=== PATIENT | male | born 1985 | race Caucasian/White ===

== ENCOUNTER 2016-07-03 08:20 | Inpatient (IN) | payer OTHER ==
[~2016-07-03] VITALS: Ht 185.4 cm; Wt 99.0 kg
[2016-07-03] VITALS (20 sets, daily range): BP systolic 117–147; BP diastolic 62–78; PULSE 64–92; RESP 16–18; TEMP 98.3–99.2; O2SAT 98–100
[2016-07-03] MEDS ORDERED: CIPR-9 PO (08:29)
[2016-07-03] MEDS ORDERED: SODIUM CHLOR 0.9% 1000 ML INJ 1,000 ML IV SCH (08:33)
--- NOTE | 2016-07-03 08:40 | PD ---
HPI Chief Complaint: Respiratory Symptoms Time Seen by Provider: 08:33 Travel History International Travel<30 days: No Contact w/Intl Traveler<30days: No Traveled to known affect area: No History of Present Illness HPI 30-year-old male with history of recent diagnosis of epidermidis, had an injection of gentamicin and Toradol yesterday afternoon at a urologist office, was given 1 dose of by mouth Cipro yesterday, last night at around 10 PM started getting chest discomfort, shortness of breath, nausea, vomiting several times overnight. He is currently complaining of a 7/10 chest discomfort. He denies any abdominal pains, fevers, difficulty swallowing, coughing, or other symptoms. He has not had previous allergic reactions. It is the first time he is taking Cipro. However, the symptoms did not start until after he took the second dose last night. He denies any rashes or facial swelling. Modifying Factors: None Associated Signs & Symptoms: Nausea, chest discomfort, shortness of breath, vomiting Risk Factors: Recent new antibiotic use PFSH Past Medical History Medical History: Denies Significant Hx Hx Anticoagulant Therapy: No Diabetes: No Diminished Hearing: No Influenza Vaccination: No ?: Not Past Surgical History Oral Surgery: Yes (jackie) Social History Alcohol Use: Yes Tobacco Use: Yes Allergies-Medications (Allergen,Severity, Reaction): Coded Allergies: No Known Allergies (Unverified , 07/03/16) Reported Meds & Prescriptions Reported Meds & Active Scripts Active Reported Cipro (Ciprofloxacin HCl) 500 Mg Tab 500 Mg PO ONCE Review of Systems Except as stated in HPI: all other systems reviewed are Neg Physical Exam Narrative GENERAL: Well-developed young white male patient who appears mildly anxious. Moderate distress. Awake and oriented 3. SKIN: Focused skin assessment warm/dry. HEAD: Atraumatic. Normocephalic. EYES: Pupils equal and round. No scleral icterus. No injection or drainage. ENT: No nasal bleeding or discharge. Mucous membranes pink and moist. NECK: Trachea midline. No JVD. CARDIOVASCULAR: Regular rate and rhythm. No murmur appreciated. RESPIRATORY: No accessory muscle use. Clear to auscultation. Breath sounds equal bilaterally. GASTROINTESTINAL: Abdomen soft, non-tender, nondistended. Hepatic and splenic margins not palpable. Benign. MUSCULOSKELETAL: No obvious deformities. No clubbing. No cyanosis. No edema. NEUROLOGICAL: Awake and alert. No obvious cranial nerve deficits. Motor grossly within normal limits. Normal speech. PSYCHIATRIC: Appropriate mood and affect; insight and judgment normal. Data Data Last Documented VS Vital Signs Date Time Temp Pulse Resp B/P Pulse Ox O2 Delivery O2 Flow Rate FiO2 07/03/16 09:24 67 18 132/64 Room Air 100 07/03/16 08:46 100 07/03/16 08:23 98.3 Orders Complete Blood Count With Diff (07/03/16 08:33) Comprehensive Metabolic Panel (07/03/16 08:33) Lipase (07/03/16 08:33) Iv Access Insert/Monitor (07/03/16 08:33) Ecg Monitoring (07/03/16 08:33) Oximetry (07/03/16 08:33) Ondansetron Inj (Zofran Inj) (07/03/16 08:45) Sodium Chlor 0.9% 1000 Ml Inj (Ns 1000 M (07/03/16 08:33) Sodium Chloride 0.9% Flush (Ns Flush) (07/03/16 08:45) Diphenhydramine Inj (Benadryl Inj) (07/03/16 08:45) Famotidine Inj (Pepcid Inj) (07/03/16 08:45) Ckmb (Isoenzyme) Profile (07/03/16 09:14) Troponin I (07/03/16 09:14) Lorazepam Inj (Ativan Inj) (07/03/16 09:15) Chest, Single Ap (07/03/16 09:16) CKMB (07/03/16 08:40) CKMB% (07/03/16 08:40) Aspirin (Aspirin) (07/03/16 10:30) Heparin Infusion KIAH.Q1H (07/03/16 10:30) Heparin Inj (Heparin Inj) (07/03/16 10:30) Heparin Inj (Heparin Inj) (07/03/16 16:30) Heparin Inj (Heparin Inj) (07/03/16 16:30) Heparin-D5w Inj (Heparin-D5w Inj) (07/03/16 10:30) Act Partial Throm Time (Ptt) (07/03/16 10:30) Prothrombin Time / Inr (Pt) (07/03/16 10:30) Cbc No Diff, Includes Plts (07/03/16 10:30) Cbc No Diff, Includes Plts (07/06/16 06:00) Act Partial Throm Time (Ptt) (07/03/16 17:30) Occult Blood (Hemoccult) Stool (07/03/16 10:30) Nitroglycerin-Dextrose Inj (Nitroglyceri (07/03/16 10:30) Consult Cardiology (07/03/16 ) Admit Order (Ed Use Only) (07/03/16 10:45) Labs Laboratory Tests Test 07/03/16 08:40 White Blood Count 18.3 TH/MM3 Red Blood Count 4.53 MIL/MM3 Hemoglobin 14.3 GM/DL Hematocrit 41.9 % Mean Corpuscular Volume 92.4 FL Mean Corpuscular Hemoglobin 31.4 PG Mean Corpuscular Hemoglobin 34.0 % Concent Red Cell Distribution Width 12.4 % Platelet Count 231 TH/MM3 Mean Platelet Volume 8.5 FL Neutrophils (%) (Auto) 85.3 % Lymphocytes (%) (Auto) 8.7 % Monocytes (%) (Auto) 4.3 % Eosinophils (%) (Auto) 0.5 % Basophils (%) (Auto) 1.2 % Neutrophils # (Auto) 15.6 TH/MM3 Lymphocytes # (Auto) 1.6 TH/MM3 Monocytes # (Auto) 0.8 TH/MM3 Eosinophils # (Auto) 0.1 TH/MM3 Basophils # (Auto) 0.2 TH/MM3 CBC Comment DIFF FINAL Differential Comment Prothrombin Time 11.7 SEC Prothromb Time International 1.1 RATIO Ratio Activated Partial 33.2 SEC Thromboplast Time Sodium Level 142 MEQ/L Potassium Level 3.9 MEQ/L Chloride Level 105 MEQ/L Carbon Dioxide Level 25.2 MEQ/L Anion Gap 12 MEQ/L Blood Urea Nitrogen 15 MG/DL Creatinine 1.10 MG/DL Estimat Glomerular Filtration 80 ML/MIN Rate Random Glucose 115 MG/DL Calcium Level 9.6 MG/DL Total Bilirubin 0.5 MG/DL Aspartate Amino Transf 139 U/L (AST/SGOT) Alanine Aminotransferase 60 U/L (ALT/SGPT) Alkaline Phosphatase 84 U/L Total Creatine Kinase 1323 U/L Creatine Kinase MB 134.7 NG/ML Creatine Kinase MB % 10.2 % Troponin I 25.00 NG/ML Total Protein 8.6 GM/DL Albumin 3.8 GM/DL Lipase 98 U/L MDM Medical Decision Making Medical Screen Exam Complete: Yes Emergency Medical Condition: Yes Medical Record Reviewed: Yes Interpretation(s) EKG shows NSR with early repolarization, no acute ST elevation or depression, and no arrhythmias. No significant T-wave inversions. Laboratory Tests Test 07/03/16 08:40 White Blood Count 18.3 TH/MM3 (4.0-11.0) Neutrophils (%) (Auto) 85.3 % (16.0-70.0) Lymphocytes (%) (Auto) 8.7 % (9.0-44.0) Neutrophils # (Auto) 15.6 TH/MM3 (1.8-7.7) Estimat Glomerular Filtration 80 ML/MIN (>89) Rate Random Glucose 115 MG/DL (74-106) Aspartate Amino Transf 139 U/L (15-37) (AST/SGOT) Total Creatine Kinase 1323 U/L (39-308) Creatine Kinase MB 134.7 NG/ML (0.5-3.6) Creatine Kinase MB % 10.2 % (0.0-4.0) Troponin I 25.00 NG/ML (0.02-0.05) Total Protein 8.6 GM/DL (6.4-8.2) Last 24 hours Impressions Chest X-Ray 07/03/16 0916 Signed Impressions: Service Date/Time: June 09:28 - CONCLUSION: No acute cardiopulmonary process. Sedrick Penn MD Differential Diagnosis Allergic reaction versus antibiotic side effect versus gastritis versus anxiety attack Narrative Course Initial EKG shows what looks like early repolarization changes in the inferior and lateral leads. Patient was initiated on Zofran, Zantac, Benadryl at the ER and IV fluids initially due to what sounds like a adverse reaction to medications. Cardiac workup was initiated. Without treatment, patient's pain went from a 7-3 out of 10. Cardiac enzymes returned fairly elevated with troponin of 22. Case was discussed with Dr. Ji of cardiology and EKGs were faxed to him, repeat EKG was done. And he states that he would start the patient on aspirin, heparin, nitroglycerin. After reviewing EKGs, he would like the patient to be transferred to [facility] as soon as possible and Nothing by mouth. He like the patient to be medically admitted to hospitalist service. However, he did not feel that the patient would qualify for ST elevation SC alert. He states that the pattern is not consistent with cardiac injury. Case was then discussed with Dr. Dixon for admission. Transfer to [place] was initiated. Diagnosis Primary Impression: Non-ST elevation SC (NSTEMI) Admitting Information Admitting Physician Requests: Admit Jennie Munoz MD July 03, 2016 08:40
[2016-07-03] MEDS ORDERED: diphenhydrAMINE HCL 50 MG/ML VIAL IV PUSH ONE (08:45)
[2016-07-03] MEDS ORDERED: FAMOTIDINE 20 MG/2 ML VIAL IV PUSH ONE (08:45)
[2016-07-03] MEDS ORDERED: ONDANSETRON HCL 4 MG/2 ML VIAL IVP ONE (08:45)
[2016-07-03] MEDS ORDERED: SODIUM CHLORIDE 0.9% FLUSH 10 ML FLUSH IV FLUSH PRN ×2 (08:45→11:15)
[2016-07-03 08:49] LABS: AUTOMATED NEUTROPHIL # 15.6 TH/MM3 (1.8-7.7); BASOPHIL # 0.2 TH/MM3 (0-0.2); BASOPHIL % 1.2 % (0.0-2.0); EOSINOPHIL # 0.1 TH/MM3 (0-0.4); EOSINOPHIL % 0.5 % (0.0-4.0); HEMATOCRIT 41.9 % (39.0-51.0); LYMPH % 8.7 % (9.0-44.0); LYMPHOCYTE # 1.6 TH/MM3 (1.0-4.8); MEAN CELL VOLUME 92.4 FL (80.0-100.0); MEAN CORPUSCULAR HEMOGLOBIN 31.4 PG (27.0-34.0); MONO % 4.3 % (0.0-8.0); NEUT % 85.3 % (16.0-70.0); PLATELET COUNT 231 TH/MM3 (150-450); RED BLOOD COUNT 4.53 MIL/MM3 (4.50-5.90); RED CELL DISTRIBUTION WIDTH 12.4 % (11.6-17.2); WHITE BLOOD COUNT 18.3 TH/MM3 (4.0-11.0)
[2016-07-03 08:50] LABS: HEMO FLAGS DIFF FINAL
[2016-07-03 08:57] LABS: CHLORIDE 105 MEQ/L (98-107); POTASSIUM 3.9 MEQ/L (3.5-5.1); SODIUM (NA) 142 MEQ/L (136-145)
[2016-07-03 09:01] LABS: ANION GAP 12 MEQ/L (5-15); BICARBONATE 25.2 MEQ/L (21.0-32.0); BLOOD UREA NITROGEN 15 MG/DL (7-18)
[2016-07-03 09:04] LABS: ALT (GPT) 60 U/L (12-78); AST (GOT) 139 U/L (15-37); GLOMERULAR FILTRATION RATE 80 ML/MIN (>89)
[2016-07-03 09:06] LABS: TOTAL BILIRUBIN ADULT 0.5 MG/DL (0.2-1.0)
[2016-07-03 09:07] LABS: ALKALINE PHOSPHATASE 84 U/L (45-117)
[2016-07-03] MEDS ORDERED: LORazepam 2 MG/ML VIAL IV PUSH ONE (09:15)
--- NOTE | 2016-07-03 09:39 | RADHPO ---
EXAM DATE/TIME: 07/03/2016 09:28 [facility] COMPARISON: No previous studies available for comparison. INDICATIONS : Chest pain, short of breath, vomiting. MEDICAL HISTORY : None. SURGICAL HISTORY : None. ENCOUNTER: Initial ACUITY: 1 day PAIN SCORE: 4/10 LOCATION: Bilateral chest FINDINGS: A single view of the chest demonstrates the lungs to be symmetrically aerated without evidence of mas s, infiltrate or effusion. The cardiomediastinal contours are unremarkable. Osseous structures are intact with a mild dextroscoliosis of the dorsal spine. CONCLUSION: No acute cardiopulmonary process. Sedrick Penn MD on July 03, 2016 at 9:34 Board Certified Radiologist. This report was verified electronically.
[2016-07-03 10:30] LABS: CKMB 134.7 NG/ML (0.5-3.6)
[2016-07-03] MEDS ORDERED: HEPARIN-D5W INJ 250 ML IV SCH (10:30)
[2016-07-03] MEDS ORDERED: ASPIRIN 325 MG TAB PO ONE (10:30)
[2016-07-03] MEDS ORDERED: HEPARIN SODIUM - IV 10,000 UNITS/10 ML VIAL IV ONE (10:30)
[2016-07-03] MEDS ORDERED: NITROGLYCERIN-DEXTROSE INJ 250 ML IV SCH (10:30)
[2016-07-03 11:14] LABS: APTT (PATIENT) 33.2 SEC (24.3-30.1); INTERNATIONAL NORMALIZED RATIO 1.1 RATIO; PROTHROMBIN TIME - PATIENT 11.7 SEC (9.8-11.6)
--- NOTE | 2016-07-03 11:14 | HHI.HP ---
HPI Service [facility] Primary Care Physician Adonis Jewell, Admission Diagnosis chest pain/elevated troponin/non-ST elevation CO Diagnoses: Chief Complaint: Chest pain, shortness of breath, scrotal swelling and pain Travel History International Travel<30 Days: No Contact w/Intl Traveler <30 Da: No Traveled to Known Affected Are: No History of Present Illness 30-year-old male with no significant medical history presented to the emergency room with complaint of worsening shortness of breath, chest pain with associated nausea and vomiting. Patient reports he has been having problems with scrotal swelling and pain for the past 10 days. He was seen by a urologist yesterday and was diagnosed with epididymitis. He received a dose of gentamicin and Toradol in the clinic. He also took one dose of Cipro yesterday morning and another dose around 10 PM last night. The chest tightness and shortness of breath started around 10 PM as well. He reports severe pain and inability to take deep breaths. The symptoms woke him up this morning which prompted the emergency room visit. Workup in the emergency room revealed abnormal EKG and markedly elevated troponin of 25. ED physician discussed the case with on-call hairpiece stylist Dr. Ji who requested transfer to the [facility] as soon as possible. Regarding the scrotal swelling. The patient reports that the swelling and pain has gotten worse over the past couple of days. He admits to having fever and chills yesterday evening. He has had blood in the semen and the urine. Review of Systems Constitutional: COMPLAINS OF: Fever, Chills Endocrine: DENIES: Polydipsia Cardiovascular: COMPLAINS OF: Chest pain, Dyspnea on Exertion Genitourinary: COMPLAINS OF: Hematuria, Testicular Pain, Testicular Swelling Except as stated in HPI: all other systems reviewed are Neg Past Family Social History Past Medical History None Past Surgical History [place] tooth removal Reported Medications Reported Meds & Active Scripts Active Reported Cipro (Ciprofloxacin HCl) 500 Mg Tab 500 Mg PO ONCE Allergies: Coded Allergies: No Known Allergies (Unverified , 07/03/16) Family History Mother is alive with history of breast cancer. Father with history of prediabetes Social History Patient admits to smoking cigars about once a month. Admits to having 1-2 alcoholic beverages about 5 days per week. He admits to marijuana use. Denies any other illicit drug use. Physical Exam Vital Signs Vital Signs Date Time Temp Pulse Resp B/P Pulse Ox O2 Delivery O2 Flow Rate FiO2 07/03/16 10:54 88 18 128/67 100 Room Air 07/03/16 09:24 67 18 132/64 Room Air 100 07/03/16 08:46 68 18 147/77 100 Room Air 07/03/16 08:23 98.3 75 16 100 Physical Exam GENERAL: This is a well-nourished, well-developed patient, in no apparent distress. SKIN: No rashes, ecchymoses or lesions. Cool and dry. HEAD: Atraumatic. Normocephalic. No temporal or scalp tenderness. EYES: Pupils equal round and reactive. Extraocular motions intact. No scleral icterus. No injection or drainage. ENT: Nose without bleeding, purulent drainage or septal hematoma. Throat without erythema, tonsillar hypertrophy or exudate. Uvula midline. Airway patent. NECK: Trachea midline. No JVD or lymphadenopathy. Supple, nontender, no meningeal signs. CARDIOVASCULAR: Regular rate and rhythm without murmurs, gallops, or rubs. RESPIRATORY: Clear to auscultation. Breath sounds equal bilaterally. No wheezes , rales, or rhonchi. GASTROINTESTINAL: Abdomen soft, non-tender, nondistended. No hepato-splenomegaly , or palpable masses. No guarding. : Left scrotum is markedly swollen and erythematous. Diffusely tender to palpation MUSCULOSKELETAL: Extremities without clubbing, cyanosis, or edema. No joint tenderness, effusion, or edema noted. No calf tenderness. Negative Homans sign bilaterally. NEUROLOGICAL: Awake and alert. Cranial nerves II through XII intact. Motor and sensory grossly within normal limits. Five out of 5 muscle strength in all muscle groups. Normal speech. Laboratory Laboratory Tests Test 07/03/16 08:40 White Blood Count 18.3 Red Blood Count 4.53 Hemoglobin 14.3 Hematocrit 41.9 Mean Corpuscular Volume 92.4 Mean Corpuscular Hemoglobin 31.4 Mean Corpuscular Hemoglobin 34.0 Concent Red Cell Distribution Width 12.4 Platelet Count 231 Mean Platelet Volume 8.5 Neutrophils (%) (Auto) 85.3 Lymphocytes (%) (Auto) 8.7 Monocytes (%) (Auto) 4.3 Eosinophils (%) (Auto) 0.5 Basophils (%) (Auto) 1.2 Neutrophils # (Auto) 15.6 Lymphocytes # (Auto) 1.6 Monocytes # (Auto) 0.8 Eosinophils # (Auto) 0.1 Basophils # (Auto) 0.2 CBC Comment DIFF FINAL Differential Comment Sodium Level 142 Potassium Level 3.9 Chloride Level 105 Carbon Dioxide Level 25.2 Anion Gap 12 Blood Urea Nitrogen 15 Creatinine 1.10 Estimat Glomerular Filtration 80 Rate Random Glucose 115 Calcium Level 9.6 Total Bilirubin 0.5 Aspartate Amino Transf 139 (AST/SGOT) Alanine Aminotransferase 60 (ALT/SGPT) Alkaline Phosphatase 84 Total Creatine Kinase 1323 Creatine Kinase MB 134.7 Creatine Kinase MB % 10.2 Troponin I 25.00 Total Protein 8.6 Albumin 3.8 Lipase 98 Result Diagram: 07/03/16 0840 07/03/16 0840 Imaging Last Impressions Chest X-Ray 07/03/16 0916 Signed Impressions: Service Date/Time: , July 03, 2016 09:28 - CONCLUSION: No acute cardiopulmonary process. Sedrick Penn MD Assessment and Plan Problem List: (1) Non-ST elevation CO (NSTEMI) ICD Code: I21.4 Status: Acute Plan: Unusual presentation for a 30-year-old male with no significant risk factors. Used ciprofloxacin, gentamicin, and Toradol yesterday. ?drug reaction. Doubtful but a viral pericarditis is not completely excluded as he currently has epididymitis which occasionally is a viral infection. Troponin of 25 on presentation. Initial EKG with possible repolarization in the inferior lateral leads. Switchboard Receptionist to review the EKG Cardiology consulted, Dr. Ji is aware. Patient will be transferred to the main hospital. Patient has been given aspirin, he was started on a heparin drip per cardiology recommendations. Continue to trend cardiac enzymes and EKG. 2D echo. Further plans per cardiology (2) Acute epididymitis ICD Code: N45.1 Status: Acute Plan: Per patient, he was seen by urology yesterday and was given a dose of gentamicin, Toradol, and ciprofloxacin. He reports persistent and worsening pain and swelling over the past couple of days. - Consult urology for assistance. - Obtain urine studies for chlamydia and gonorrhea - Obtain ultrasound. We'll give him a dose of Rocephin. Will consider doxycycline once acute cardiac issues are dealt with. (3) Scrotal swelling ICD Code: N50.89 Status: Acute Plan: See above. Pain control. Urology consulted. (4) Leukocytosis ICD Code: D72.829 Status: Acute Plan: Likely secondary to epididymitis. Continue to monitor (5) LFT elevation ICD Code: R94.5 Status: Acute Plan: Probably secondary to alcohol use. Monitor (6) Tobacco abuse ICD Code: Z72.0 Status: Acute Plan: Patient counseled to quit. Discussed Condition With Dr. Power in the ER Physician Certification 2 Midnight Certification Type: Admission for Inpatient Services Order for Inpatient Services The services are ordered in accordance with Medicare regulations or non- Medicare payer requirements, as applicable. In the case of services not specified as inpatient-only, they are appropriately provided as inpatient services in accordance with the 2-midnight benchmark. Estimated LOS (days): 3 days is the estimated time the patient will need to remain in the hospital, assuming treatment plan goals are met and no additional complications. Post-Hospital Plan: Home Manuel Dixon MD July 03, 2016 11:14
[2016-07-03] MEDS ORDERED: DOCUSATE SODIUM 100 MG CAP PO PRN (11:15)
[2016-07-03] MEDS ORDERED: ONDANSETRON HCL 4 MG/2 ML VIAL IV PRN (11:15)
[2016-07-03] MEDS ORDERED: diphenhydrAMINE HCL 50 MG/ML VIAL IV PUSH PRN (11:30)
[2016-07-03 12:03] LABS: CKMB 139.3 NG/ML (0.5-3.6)
[2016-07-03] MEDS ORDERED: HEPARIN-NS/PF INJ 500 ML ONE (12:07)
[2016-07-03] MEDS ORDERED: VANCOMYCIN INJ 1,000 MG in SODIUM CHLOR 0.9% 250 ML INJ 250 ML IV SCH (13:00)
[2016-07-03] MEDS ORDERED: SODIUM CHLORIDE 0.9% FLUSH 10 ML FLUSH PRN (13:30)
[2016-07-03] MEDS ORDERED: MISC INFORMATION XX ONE (13:30)
--- NOTE | 2016-07-03 13:38 | CATHPROC ---
Ticket ABC HIS Report Study Information Study Number Admission Scheduled Start Study Start 1307/03/2016 07/03/2016 Jul 03 2016 12:21PM Study Type [facility] Service Left Heart Cath Cardiac Catheterization Referring Institution Admit Source Facility Department 1 Emergency department [facility] - Supervisor Sheet Manufacturing Physician and Clinical Staff Initial Justin Ferro Wood Patternmaker Anna Keller RN Recorder Julissa Franklin,RT(R) Scrub Chika Jaramillo,PHOTOLITHOGRAPHIC STRIPPER TECH2 Procedures Performed Procedure Location (Site) Vessel Name Coronary Angiograms LCA Left Coronary Coronary Angiograms RCA Right Coronary L Heart Cath Wire insertion Fem Art (right) Femoral Art Equipment Time Utilization Coordinator Description Size Mfg Part Number Used/Scraped TRANSDUCER, TRUWAVE 13:11 SANDOV[employer] KELLER * [id number] Used W/STOCKCOCK 13:11 [employer] INDUSTRIES PACK, CCL CUSTOM * [id number] Used 13:11 [employer] PACER PEN, SKIN DUAL W/ RULER * [id number] Used 13:11 [employer] MEDICAL WIRE, 3MMJ .035 180CM 180CM [id number] Used [id number] 13:11 [employer] MANIFOLD, 4 PORT * Used *[id number] 13:11 [employer] OMNIPAQUE, 350 MG, 100ML 100ML [id number] Used 13:11 [employer] MEDICAL BLANKET,WARM AIR CCL * [id number] Used 13:11 [employer] MEDICAL SHEATH, FR4 TERUMO (10CM) FR 4 [id number] Used History: Allergies Allergy Reaction No Known Allergies History: Risk Factors Family History of Hypertension Dyslipidemia Previous KS Previous Heart Failure Premature CAD No No No No No Prior Valve Prior PCI Prior CABG Surgery No No No Cerebrovascular Peripheral Artery Chronic Lung On Dialysis Diabetes Disease Disease Disease No No No No No History: Risk Factors Selection Items Current Smoker History: Symptoms/Diagnosis Selection Items Chest pain History: Stress Tests Stress or Imaging Studies Performed No History: Other Current Smoker Method Packs a Day Yes Cigarettes 1 Labs Hgb (g/dl) Hct (%) WBC (l/cumm) Platelets (thousands) 12.00-18.00 37.00-55.00 4.80-10.80 140.00-450.00 14.3 41.9 18.3 231 Glucose (mg/dl) BUN (mg/dl) Creatinine (mg/dl) BUN:Creatinine (1:x) 60.00-110.00 8.00-20.00 0.10-9.00 10.00-20.00 115 15 1.1 13.6 Na (meq/l) K (meq/l) 138.00-146.00 3.80-5.10 142 3.9 INR (PTT:PT) 0.50-2.00 1.1 Troponin I (ng/ml) CPK-MB (ng/ML) 0.40-2.30 0.00-7.00 25 Not Drawn Medication Medication Total Dose (Bolus/Oral) Medication Total Dosage/Unit 1% XYLOCAINE 20 mL FENTANYL 12.5 mcg Medications (Bolus/Oral) Medication Time Given Dosage/Unit Administered By Reason 1% XYLOCAINE 07/03/2016 1:09:05 PM 20 mL Justin Ji Patient arrived on 20 mL 1% XYLOCAINE given by Justin Ji in Right Groin via Subcutaneous. FENTANYL 07/03/2016 1:13:24 PM 12.5 mcg Anna Keller Patient arrived on 12.5 mcg FENTANYL given by Anna Keller, MICKY via Peripheral IV. Medication (Drip) Medication Time Given Dosage/Unit Concentration/Unit Diluent (ml) Solution HEPARIN DRIP 07/03/2016 12:47:57 PM 1000 units/hr 18345 units 250 D5W Patient arrived on 1000 units/hr HEPARIN DRIP in Left Antecubital via Peripheral IV. Pump/Drip Flow = 10 ml/hr using [place] [address] units in 250 ml. NITROGLYCERIN DRIP 07/03/2016 12:47:32 PM 5 mcg/min 50 mg 250 D5W Patient arrived on 5 mcg/min NITROGLYCERIN DRIP in Left Hand via Peripheral IV. Pump/Drip Flow = 1.5 ml/hr using D5W with a concentration of 50 mg in 250 ml. Initial Case Assessment Cardiovascular HR Rhythm NIBP Chest Pain 98 reg 145/67 5 Edema Present Skin color Skin None Normal Warm Circulatory - Right Pulses Dorsalis Pedis Femoral 3 3 Scale (0,1,2,3,4,d) Circulatory - Left Pulses Dorsalis Pedis Femoral 3 3 Scale (0,1,2,3,4,d) Circulatory - Lower Extremities Color Lower Right Color Lower Left Normal Normal Neurological State Oriented to time-place- Alert Moves all extremities person Respiration - General Respiration Rate SpO2 (%) O2 (lpm) (B/min) 14 100 2 Final Case Assessment Cardiovascular HR Rhythm NIBP Chest Pain 86 REG-PVC 129/78 5 Edema Present Skin color Skin None Normal Warm Circulatory - Right Pulses Dorsalis Pedis Femoral 3 3 Scale (0,1,2,3,4,d) Circulatory - Left Pulses Dorsalis Pedis Femoral 3 3 Scale (0,1,2,3,4,d) Circulatory - Lower Extremities Color Lower Right Color Lower Left Normal Normal Neurological State Oriented to time-place- Alert Moves all extremities person Respiration - General Respiration Rate SpO2 (%) O2 (lpm) (B/min) 23 99 2 Chronological Log Time Study Chronological Log 12:46:45 Patient arrived via Bed. 12:46:46 Patient Name, D.O.B, / Armband Verified By R.N. 12:46:47 Consent signed by the physician and the patient and verified by the Supervisor Sheet Manufacturing staff. 12:46:50 Pre-op and post- op instructions given; patient acknowledges understanding of instructions. 12:46:51 Verbal Stimulation=2 Physical Stimulation=2 Airway=2 Respiration=2 TOTAL=8. (0=absent, 1=li mited, 2=present) 12:47:06 Patient has been NPO for More than 6Hrs. 12:47:09 Skin Breakdown-swollen testicles 12:47:23 A # 20 IV was noted in the Hand (left). Grade = 0 Patient arrived on 5 mcg/min NITROGLYCERIN DRIP in Left Hand via Peripheral IV. Pump/Drip Flow = 1.5 ml/hr using 12:47:32 D5W with a concentration of 50 mg in 250 ml. Patient arrived on 1000 units/hr HEPARIN DRIP in Left Antecubital via Peripheral IV. Pump/Drip Flow = 10 ml/hr using 12:47:57 D[place] [address] units in 250 ml. 12:49:09 History and physical on the chart or being dictated. Assessment: Initial Case, HR=98 BPM, Rhythm=reg, YNGM=408/67 mmhg, Chest Pain=5, Edema=None, Co timothy=Normal, Skin = Warm Right Pulses: Omid Ped=3, Femoral=3 Left Pulses: Omid Ped=3, Femoral=3 12:49:13 Lower Right Extremities: Color=Normal Lower Left Extremities: Color=Normal Neurological: State=Alert, Ox3, [place] Respiration: Resp=14 B/min, CbO3=740 %, O2=2 lpm 12:49:22 Bilateral groins prepped with 2% chlorhexidine, and with a 3 min. waiting time. 12:49:41 A # 20 IV was noted in the Antecubital (left). Grade = 0 12:52:26 History and physical on the chart or being dictated. 12:53:38 heparin discontinued in lab Vitals capture started with the following parameters, Patient=Adult, Interval=5 min, Initial Pr pqmkuf=494 mmHg, 12:54:19 Deflation Rate=5 mmHg 12:54:42 MD paged 12:56:14 ZZ=397 bpm, RUXH=325/67 mmhg, YmA4=288.0 %, Resp=8 B/min, Pain=5, Deepa=10, Bloom=2 12:56:37 Reference ECG taken 12:58:02 Pressure channel 1 zeroed. 13:00:00 HR=83 bpm, VHJN=477/71 mmhg, EzY5=333.0 %, Resp=15 B/min, Pain=5, Deepa=10, Bloom=2 13:04:51 MD arrived. 13:04:57 HR=93 bpm, NQON=309/85 mmhg, SpO2=99.0 %, Resp=11 B/min, Pain=5, Deepa=10, Bloom=2 Time Out. Correct patient, correct procedure,correct physician, ,power injector not loaded with contrast with surgical 13:08:44 team present. Time Out Concurred by MD, individual staff and CLASSIFIER in procedure 13:08:57 Case Start 13:08:58 Verbal Stimulation=2 Physical Stimulation=2 Airway=2 Respiration=2 TOTAL=8. (0=absent, 1=li mited, 2=present) 13:09:05 Patient arrived on 20 mL 1% XYLOCAINE given by Justin Ji in Right Groin via Subcutan eous. 13:10:02 HR=98 bpm, DQVZ=627/78 mmhg, SpO2=99.0 %, Resp=11 B/min, Pain=5, Deepa=10, Bloom=2 13:10:30 Access site was Right Femoral Artery.RT 13:10:39 A wire was inserted via Fem Art (right). 13:10:40 A SHEATH, FR4 TERUMO (10CM) FR 4 was advanced into the Fem Art (right) using the Percutaneo us technique. 13:11:14 Activated Clotting Time Drawn A JR 4.0 INFINITI CATHETER FR 4 was advanced over a wire. OMNIPAQUE, 350 MG, 100ML 100ML was us ed for 13:11:24 injections. Recorded Pressure: LV, HR=82, Condition=Condition 1 13:12:04 (Left Ventricle) LV 113/6/17 Recorded Pressure: LV, Ao, HR=80, Condition=Condition 1 13:12:19 (Left Ventricle) LV 108/-7/16, (Aorta) Ao 109/74/90 13:13:24 Patient arrived on 12.5 mcg FENTANYL given by Anna Keller RN via Peripheral IV. 13:13:39 The RCA was injected and visualized at various angles. OMNIPAQUE, 350 MG, 100ML 100ML used . 13:13:55 Catheter was removed 13:13:59 ACT (Normal Range 90-180) = 157 13:14:06 A JL 4.0 INFINITI CATHETER FR 4 was advanced over a wire. contrast was used for injections. 13:15:01 HR=91 bpm, LYRN=904/75 mmhg, SpO2=99.0 %, Resp=12 B/min, Pain=5, Deepa=10, Bloom=2 13:15:32 The LCA was injected and visualized at various angles. OMNIPAQUE, 350 MG, 100ML 100ML used . 13:17:24 Catheter was removed 13:19:44 Case End Assessment: Final Case, HR=86 BPM, Rhythm=REG-PVC, VLWL=184/78 mmhg, Chest Pain=5, Edema=None, Color=Normal, Skin = Warm Right Pulses: Omid Ped=3, Femoral=3 Left Pulses: Omid Ped=3, Femoral=3 13:19:53 Lower Right Extremities: Color=Normal Lower Left Extremities: Color=Normal Neurological: State=Alert, Ox3, [place] Respiration: Resp=23 B/min, SpO2=99 %, O2=2 lpm 13:20:02 HR=85 bpm, XOYR=977/78 mmhg, KwU9=598.0 %, Resp=23 B/min, Pain=5, Deepa=10, Bloom=2 13:20:34 Catheter(s) removed without difficulty 13:20:38 Sheath removed; pressure applied to access site. YOVANA JARAMILLO 13:20:50 Sterile dressing applied to site 13:20:51 No case complications noted. 13:20:52 Cine recording checked. 13:20:54 Bedside Report will be given. 13:20:58 Contrast Scanned 13:21:00 A Left Heart Cath was performed. 13:21:02 Clinical correlaton risk stratification. 13:25:01 HR=86 bpm, TJDX=574/72 mmhg, SpO2=98.0 %, Resp=24 B/min, Pain=5, Deepa=10, Bloom=2 13:30:02 HR=89 bpm, LAAH=417/79 mmhg, SpO2=98.0 %, Resp=16 B/min, Pain=5, Deepa=10, Bloom=2 13:35:03 HR=81 bpm, EMKD=279/73 mmhg, SpO2=99.0 %, Resp=11 B/min, Pain=5, Deepa=10, Bloom=2 End Study - Contrast Media Used In Study Contrast Total Opened (mL) Total Used (mL) Total Wasted (mL) Omnipaque 50 50 0 End Study - Maximum Contrast Load Max Contrast Load (mL) 445.9 End Study - Radiation Exposure Fluoro Time (minutes) 2.1 End Study - Patient Disposition Complications Transferred To No Regular Bed
[2016-07-03 14:00] LABS: HDL CHOLESTEROL 16.5 MG/DL (40.0-60.0)
[2016-07-03] MEDS: MORPHINE SULFATE 4 MG/ML INJ IV PRN ×2 (14:35→22:54)
[2016-07-03] MEDS: PIPERACIL-TAZO 4.5 GM PREMIX 100 ML IV SCH ×2 (15:17→22:45)
--- NOTE | 2016-07-03 15:19 | EKG ---
Date Performed: 07/03/2016 Time Performed: 10:17:52 PTAGE: 30 years EKG: Sinus arrhythmia Inferior and lateral ST elevation - possible early repolarization,pericard itis or injury. Borderline ECG COMPARED TO PRIOR ELECTROCARDIOGRAM, No significant change. PREVIOUS TRACING : 07/03/2016 08.24 DOCTOR: Rocky Rollins Interpretating Date/Time 07/03/2016 15:19:31
--- NOTE | 2016-07-03 15:25 | EKG ---
Date Performed: 07/03/2016 Time Performed: 08:24:02 PTAGE: 30 years EKG: Possible ectopic atrial rhythm Inferior and lateral ST elevation suggests early repolarizat ion, acute injury or pericarditis. Septal ST changes are borderline abnormal Borderline ECG NO PREVIOUS TRACING DOCTOR: Rocky Rollins Interpretating Date/Time 07/03/2016 15:23:16
[2016-07-03] MEDS ORDERED: IOHEXOL 350 MG/ML 100 ML BTL (for Cath Lab) OTHER ONE (15:32)
[2016-07-03] MEDS: VANCOMYCIN INJ 1,000 MG in SODIUM CHLOR 0.9% 250 ML INJ 250 ML IV SCH (16:12)
--- NOTE | 2016-07-03 16:16 | MB ---
cc: HAL RAMIREZ M.D. DATE OF CONSULTATION: 07/03/2016 HISTORY OF PRESENT ILLNESS: Siva is a very pleasant 30-year-old gentleman recently diagnosed with epididymitis. He received gentamicin and Toradol yesterday afternoon. He also took a dose of Cipro after which he noted he got acutely short of breath. He developed 7/10 chest pain and had nausea and vomiting several times. He presented to the [facility] Emergency Room and was found to have elevated cardiac enzymes, atypical S-T elevation diffusely on the EKG. He otherwise denies any fever, chills, cough, GI or bleeding. PAST MEDICAL HISTORY: His past medical history is per his history of present illness. SOCIAL HISTORY: He does drink alcohol and he does smoke tobacco. ALLERGIES: NONE. MEDICATIONS: 1. Aspirin 325 milligrams given in the emergency room. 2. IV heparin given in the emergency room. 3. Vancomycin. 4. Piperacillin. PHYSICAL EXAMINATION: VITAL SIGNS: Blood pressure 123/69, pulse 92, respiratory rate 18. Saturations are 100% on room air. GENERAL: He is alert and oriented times three and in no acute distress. NECK: The neck is supple. No jugular venous distention. No bruits. CARDIOVASCULAR EXAM: S1 and S2. No murmurs, rubs or gallops. LUNGS: Clear to auscultation bilaterally. ABDOMEN: The abdomen is soft, nontender and nondistended with positive bowel sounds. EXTREMITIES: No lower extremity edema. LABS: White count 18.3, hemoglobin 14.3, hematocrit 41.9, platelet count 231,000. Sodium 142, potassium 3.9, chloride 105, bicarbonate 27.2, BUN of 15, creatinine 1.10. AST is 139, ALT is 60. Initial CK of 1323 with an MB percent of 10.2. Initial troponin was 25.0. The second CK is 1369 with an MB percent of 10.2 and troponin of 37.0. LDL is 94, HDL is 16.5. INR 1.1. IMAGING STUDIES: Chest x-ray shows no acute cardiopulmonary process. EKGS: Initial EKG shows sinus rhythm at a rate of 70 beats per minute with J-point elevation in II, III and aVf, V4, V5, V6 suggestive of pericarditis. DIAGNOSES: He has the following diagnoses: 1. STEMI. 2. Myocardial infarction. 3. Pericarditis. 4. Myocarditis. 5. Abnormal EKG. 6. Elevated white count. 7. Markedly low HDL. 8. Dyslipidemia. 9. Elevated liver enzymes. 10. Hyperglycemia. DISCUSSION: The patient has ongoing chest pain in the emergency room with atypical S-T elevation. Given his young age and elevated enzyumes, I do think a STEMI protocol is indicated medically and I have discussed this with the emergency room physician and the laboratory machinist at [place]. PLAN: The plan is for emergency transfer to the cardiac catheterization lab for further evaluation and management. MD MEGAN Roberts/MYNOR /3:49 PM /4:03 PM
[2016-07-03] MEDS ORDERED: HEPARIN SODIUM - IV 10,000 UNITS/10 ML VIAL IV PRN ×2 (16:30)
--- NOTE | 2016-07-03 17:09 | RADHPO ---
EXAM DATE/TIME: 07/03/2016 16:11 [place] COMPARISON: No previous studies available for comparison. EXTERNAL COMPARISON : [facility], US TESTICLE, June 25, 2016 INDICATIONS : Testicle pain. MEDICAL HISTORY : Fever. Hematuria. SURGICAL HISTORY : [place] teeth. ENCOUNTER: Initial ACUITY: 2 weeks PAIN SCORE: 5/10 LOCATION: Bilateral testicles. MEASUREMENTS: RIGHT TESTICLE: 3.6 x 5.0 x 4.0cm LEFT TESTICLE: 4.6 x 4.2 x 3.4cm FINDINGS: RIGHT TESTICLE: Homogeneous echotexture without intra or extratesticular mass. Blood flow is within normal limits. S mall varicocele identified no hydrocele. Epididymis is within normal limits. LEFT TESTICLE: Homogeneous echotexture without intra or extratesticular mass. Increased blood flow relative to the r ight testicle. Moderate-sized ureterocele. No hydrocele. Heterogeneous echotexture with increased vas cularity. SCROTUM: Within normal limits. CONCLUSION: 1. Sonographic and Doppler findings characteristic of an epididymitis with possible mild associated o rchitis on the left. 2. Both testicles are otherwise sonographically intact. 3. Bilateral varicoceles, left greater than right Sedrick Penn MD on July 03, 2016 at 17:02 Board Certified Radiologist. This report was verified electronically.
[2016-07-03] MEDS: INDOMETHACIN 50 MG CAP PO SCH ×2 (18:12→22:56)
[2016-07-03 18:14] LABS: CHLAMYDIA PCR NOT DETECTED (NOT DETECT); NEISSERIA PCR NOT DETECTED (NOT DETECT)
--- NOTE | 2016-07-03 20:27 | EKG ---
Date Performed: 07/03/2016 Time Performed: 17:31:06 PTAGE: 30 years EKG: Sinus rhythm . Inferior T wave changes are nonspecific Borderline ECG NO PREVIOUS TRACING DOCTOR: Rocky Rollins Interpretating Date/Time 07/03/2016 20:26:29
--- NOTE | 2016-07-03 20:28 | EKG ---
Date Performed: 07/03/2016 Time Performed: 14:26:24 PTAGE: 30 years EKG: Sinus rhythm Lateral ST elevation - possible early repolarization Inferior T wave changes may be normal for age B orderline ECG NO SIGNIFICANT CHANGE FROM PRIOR ELECTROCARDIOGRAM. PREVIOUS TRACING : 07/03/2016 10.17 DOCTOR: Rocky Rollins Interpretating Date/Time 07/03/2016 20:28:08
[2016-07-03] MEDS ORDERED: SODIUM CHLORIDE 0.9% FLUSH 10 ML FLUSH SCH (21:00)
[2016-07-03] MEDS: CARVEDILOL 3.125 MG TAB PO SCH (22:45)
[2016-07-03] MEDS: SODIUM CHLORIDE 0.9% FLUSH 10 ML FLUSH IV FLUSH SCH (22:46)
[2016-07-04] VITALS (16 sets, daily range): BP systolic 121–141; BP diastolic 63–86; PULSE 56–77; RESP 16–20; TEMP 97.1–98.2; O2SAT 95–99
[2016-07-04] MEDS: PIPERACIL-TAZO 4.5 GM PREMIX 100 ML IV SCH ×3 (02:23→14:00)
[2016-07-04 03:29] LABS: AUTOMATED NEUTROPHIL # 5.9 TH/MM3 (1.8-7.7); BASOPHIL % 0.1 % (0.0-2.0); EOSINOPHIL # 0.1 TH/MM3 (0-0.4); EOSINOPHIL % 1.7 % (0.0-4.0); HEMO FLAGS DIFF FINAL; LYMPH % 21.5 % (9.0-44.0); LYMPHOCYTE # 1.8 TH/MM3 (1.0-4.8); MEAN CELL VOLUME 91.5 FL (80.0-100.0); MEAN CORPUSCULAR HEMOGLOBIN 30.8 PG (27.0-34.0); MEAN CORPUSCULAR HGB CONC 33.6 % (32.0-36.0); MONO % 6.2 % (0.0-8.0); NEUT % 70.5 % (16.0-70.0); PLATELET COUNT 202 TH/MM3 (150-450); RED BLOOD COUNT 3.83 MIL/MM3 (4.50-5.90); RED CELL DISTRIBUTION WIDTH 12.8 % (11.6-17.2); WHITE BLOOD COUNT 8.4 TH/MM3 (4.0-11.0)
[2016-07-04 03:45] LABS: BICARBONATE 28.8 MEQ/L (21.0-32.0); MAGNESIUM 2.3 MG/DL (1.5-2.5); POTASSIUM 4.2 MEQ/L (3.5-5.1)
[2016-07-04 03:47] LABS: HDL CHOLESTEROL 20.1 MG/DL (40.0-60.0)
[2016-07-04 03:48] LABS: APTT (PATIENT) 29.7 SEC (24.3-30.1)
[2016-07-04 04:07] LABS: CKMB 32.8 NG/ML (0.5-3.6)
[2016-07-04] MEDS: VANCOMYCIN INJ 1,000 MG in SODIUM CHLOR 0.9% 250 ML INJ 250 ML IV SCH ×2 (05:09→14:27)
[2016-07-04] MEDS: INDOMETHACIN 50 MG CAP PO SCH ×4 (05:12→22:12)
--- NOTE | 2016-07-04 07:34 | EKG ---
Date Performed: 07/04/2016 Time Performed: 06:02:00 PTAGE: 30 years EKG: Sinus arrhythmia Inferior T wave changes may be normal for age Minimal nonspecific ST eleva tions which may represent early repolarization. Borderline ECG NO PREVIOUS TRACING DOCTOR: Rocky Rollins Interpretating Date/Time 07/04/2016 07:32:43
--- NOTE | 2016-07-04 07:37 | EKG ---
Date Performed: 07/03/2016 Time Performed: 22:55:06 PTAGE: 30 years EKG: Sinus arrhythmia Inferior T wave changes may be normal for age Borderline ECG NO SIGNIFICAN T CHANGE FROM PRIOR ELECTROCARDIOGRAM. PREVIOUS TRACING : 07/03/2016 17.31 DOCTOR: Rocky Rollins Interpretating Date/Time 07/04/2016 07:37:09
--- NOTE | 2016-07-04 08:25 | HHI.PR ---
Subjective Remarks Patient is in the bed. Says she can ambulate but has pain in his left groin, says swelling and erythema is somehow improving. No fever or chill overnight. Says no more chest pain since yesterday. Says meds helped. No n/v/d/c. Objective Vitals Vital Signs Date Time Temp Pulse Resp B/P Pulse Ox O2 Delivery O2 Flow Rate FiO2 07/04/16 07:15 75 07/04/16 07:15 98.2 18 134/79 95 07/04/16 06:00 70 07/04/16 06:00 97.1 69 16 121/66 95 07/04/16 05:00 66 07/04/16 04:00 56 07/04/16 03:00 60 07/04/16 02:00 70 07/04/16 01:00 64 07/04/16 00:00 66 07/03/16 23:28 98.5 67 16 125/64 98 07/03/16 23:00 67 07/03/16 22:00 64 07/03/16 21:20 99.2 76 18 139/78 99 07/03/16 21:00 74 07/03/16 20:00 70 07/03/16 19:00 85 07/03/16 18:00 88 07/03/16 17:00 85 07/03/16 16:00 84 07/03/16 15:00 91 07/03/16 15:00 83 18 129/66 100 07/03/16 12:00 92 18 123/69 100 Room Air 07/03/16 11:58 100 21 07/03/16 11:45 78 18 117/63 100 Room Air 07/03/16 11:33 18 07/03/16 11:30 82 18 117/62 100 Room Air 07/03/16 11:22 84 07/03/16 11:15 81 18 125/67 99 Room Air 07/03/16 10:54 88 18 128/67 100 Room Air 07/03/16 09:24 67 18 132/64 Room Air 100 07/03/16 08:46 68 18 147/77 100 Room Air I/O 07/03/16 07/03/16 07/03/16 07/04/16 07/04/16 07/04/16 07:00 15:00 23:00 07:00 15:00 23:00 Intake Total 1000 ml 240 ml 880 ml Output Total 400 ml 400 ml 400 ml Balance 600 ml -160 ml 480 ml Intake Oral 240 ml 480 ml IV Total 1000 ml 400 ml Output Urine Total 400 ml 400 ml 400 ml # Voids 1 1 Result Diagram: 07/04/16 0254 07/04/16 0254 Imaging Last Impressions Chest X-Ray 07/03/16 0916 Signed Impressions: Service Date/Time: June 09:28 - CONCLUSION: No acute cardiopulmonary process. Sedrick Penn MD Scrotum Ultrasound 07/03/16 0000 Signed Impressions: Service Date/Time: June 16:11 - CONCLUSION: 1. Sonographic and Doppler findings characteristic of an epididymitis with possible mild associated orchitis on the left. 2. Both testicles are otherwise sonographically intact. 3. Bilateral varicoceles, left greater than right Sedrick Penn MD Objective Remarks GENERAL: This is a well-nourished, well-developed patient, in no apparent distress. SKIN: No rashes, ecchymoses or lesions. Cool and dry. HEAD: Atraumatic. Normocephalic. No temporal or scalp tenderness. EYES: Pupils equal round and reactive. Extraocular motions intact. No scleral icterus. No injection or drainage. ENT: Nose without bleeding, purulent drainage or septal hematoma. Throat without erythema, tonsillar hypertrophy or exudate. Uvula midline. Airway patent. NECK: Trachea midline. No JVD or lymphadenopathy. Supple, nontender, no meningeal signs. CARDIOVASCULAR: Regular rate and rhythm without murmurs, gallops, or rubs. RESPIRATORY: Clear to auscultation. Breath sounds equal bilaterally. No wheezes , rales, or rhonchi. GASTROINTESTINAL: Abdomen soft, non-tender, nondistended. No hepato-splenomegaly , or palpable masses. No guarding. : Left scrotum is markedly swollen and erythematous. Diffusely tender to palpation MUSCULOSKELETAL: Extremities without clubbing, cyanosis, or edema. No joint tenderness, effusion, or edema noted. No calf tenderness. Negative Homans sign bilaterally. NEUROLOGICAL: Awake and alert. Cranial nerves II through XII intact. Motor and sensory grossly within normal limits. Five out of 5 muscle strength in all muscle groups. Normal speech. A/P Problem List: (1) Non-ST elevation PR (NSTEMI) ICD Code: I21.4 Status: Acute (2) Acute epididymitis ICD Code: N45.1 Status: Acute (3) Scrotal swelling ICD Code: N50.89 Status: Acute (4) Leukocytosis ICD Code: D72.829 Status: Acute (5) LFT elevation ICD Code: R94.5 Status: Acute (6) Tobacco abuse ICD Code: Z72.0 Status: Acute Assessment and Plan Non-ST elevation PR (NSTEMI) Pericarditis ICD Code: I21.4 Status: Acute Plan: Unusual presentation for a 30-year-old male with no significant risk factors. Used ciprofloxacin, gentamicin, and Toradol yesterday. ?drug reaction. Doubtful but a viral pericarditis is not completely excluded as he currently has epididymitis which occasionally is a viral infection. Troponin of 25 on presentation and was trending up. Initial EKG with possible repolarization in the inferior lateral leads. Fuel Cell Engineer to review the EKG Cardiology consulted, Dr. Ji is aware. Patient will be transferred [facility]. Patient has been given aspirin, he was started on a heparin drip per cardiology recommendations. Continue to trend cardiac enzymes and EKG. 2D echo. Went for cardiac cath 07/03/16 , clean cath Acute epididymitis, failed OP treatment ICD Code: N45.1 Status: Acute Plan: Per patient, he was seen by urology yesterday and was given a dose of gentamicin, Toradol, and ciprofloxacin. He reports persistent and worsening pain and swelling over the past couple of days. - Consult urology for assistance. - Urine studies for chlamydia and gonorrhea are negative - Obtain ultrasound. Received on edose of Rocephin. Start vanco and zosyn IV. Will consider doxycycline once acute cardiac issues are dealt with. - Consult ID for recommendations or abx at MI. Scrotal swelling ICD Code: N50.89 Status: Acute Plan: See above. Pain control. Urology consulted. Leukocytosis ICD Code: D72.829 Status: Acute Plan: Likely secondary to epididymitis. Continue to monitor LFT elevation ICD Code: R94.5 Status: Acute Plan: Probably secondary to alcohol use. Monitor. Trend levels Tobacco abuse ICD Code: Z72.0 Status: Acute Plan: Patient counseled to quit. Discussed with patient, nurse, his mother Transfer to med /surg floor Faye Teresa MD July 04, 2016 08:25
[2016-07-04] MEDS: CARVEDILOL 3.125 MG TAB PO SCH ×2 (09:05→21:58)
[2016-07-04] MEDS: SODIUM CHLORIDE 0.9% FLUSH 10 ML FLUSH IV FLUSH SCH ×2 (09:05→21:00)
[2016-07-04] MEDS: ASPIRIN 81 MG CHEW TAB PO SCH (09:05)
[2016-07-04] MEDS: RAMIPRIL 2.5 MG CAP PO SCH (09:05)
--- NOTE | 2016-07-04 10:08 | EC ---
Study Study Date:07/03/2016 STUDY CONCLUSIONS SUMMARY - Left ventricle: The cavity size was normal. Wall thickness was normal. Systolic function was normal. The estimated ejection fraction was in the range of 60% to 65%. Wall motion was normal; there were no regional wall motion abnormalities. - Aortic valve: Valve area: 2.31cm^2 (Vmax). If LV function is below 40, please consider prescribing an ACEI or ARB or document rationale for non-use. PROCEDURE DATA STUDY STATUS: Elective. Procedure: Transthoracic echocardiography. Image quality was good. Scanning was performed from the parasternal, apical, and subcostal acoustic windows. Study completion: The patient tolerated the procedure well. Transthoracic echocardiography. M-mode, complete 2D, complete spectral Doppler, and color Doppler. Height: Height: 73in. Weight: Weight: 215.6lb. Body mass index: BMI: 28.5kg/m^2. Body surface area: BSA: 2.22m^2. Patient status: Inpatient. CARDIAC ANATOMY LEFT VENTRICLE: The cavity size was normal. Wall thickness was normal. Systolic function was normal. The estimated ejection fraction was in the range of 60% to 65%. Wall motion was normal; there were no regional wall motion abnormalities. AORTIC VALVE: Trileaflet; normal thickness leaflets. Doppler: Transvalvular velocity was within the normal range. There was no stenosis. No regurgitation. Valve area: 2.31cm^2 (Vmax). Indexed valve area: 1.04cm^2/m^2 (Vmax). AORTA: Aortic root: The aortic root was normal in size. MITRAL VALVE: Structurally normal valve. Doppler: Transvalvular velocity was within the normal range. There was no evidence for stenosis. No regurgitation. Valve area by pressure half-time: 3.73cm^2. Indexed valve area by pressure half-time: 1.68cm^2/m^2. Peak gradient: 4mm Hg (D). LEFT ATRIUM: The atrium was normal in size. RIGHT VENTRICLE: The cavity size was normal. Wall thickness was normal. PULMONIC VALVE: Doppler: Transvalvular velocity was within the normal range. There was no evidence for stenosis. No regurgitation. TRICUSPID VALVE: Structurally normal valve. Doppler: Transvalvular velocity was within the normal range. No regurgitation. Peak gradient: 8mm Hg (D). PULMONARY ARTERY: The main pulmonary artery was normal-sized. Systolic pressure was within the normal range. RIGHT ATRIUM: The atrium was normal in size. PERICARDIUM: There was no pericardial effusion. SYSTEMIC VEINS: Inferior vena cava: The vessel was normal in size. Patient weight: 215.6lb _Ejection fraction:_ 65-75% _Fractional shortening:_ 32% up to 5Kg 5-11.5Kg 11.6-22.9Kg 23-45Kg 45-57Kg Aortic Root 7-13 <17 13-22 17-27 17-27 LA diam 6-13 <23 24-38 33-47 37-40 RVID 10-17 7-15 7-15 7-18 8-17 LVIDd 12-22 <32 24-38 33-47 37-40 LVPW 2-4 3-6 5-7 6-8 7-8 IVS 2-4 3-6 5-7 6-8 7-8 BASIC MEASUREMENTS ADULT NORMAL Left ventricle LV internal dimension, ED, chordal 51.5 mm 43-52 level, PLAX LV internal dimension, ES, chordal 32.6 mm 23-38 level, PLAX Fractional shortening, chordal level, 37 % >29 PLAX LV posterior wall thickness, ED 11.4 mm IVS/LVPW ratio, ED 1 <1.3 Volume, ED, MOD, 1-plane 118 ml Volume, ES, MOD, 1-plane 39 ml Ejection fraction, MOD, 1-plane 67 % Stroke volume, MOD, 1-plane 79 ml Volume index, ED, MOD, 1-plane 53 ml/m^2 Volume index, ES, MOD, 1-plane 18 ml/m^2 Stroke index, MOD, 1-plane 35.6 ml/m^2 Ventricular septum Septal thickness, ED 11.4 mm Aortic valve Leaflet separation 21 mm 15-26 Left atrium Anterior-posterior dimension 35 mm Anterior-posterior dimension index 1.58 cm/m^2 <2.2 Right ventricle RV internal dimension, ED, PLAX 24.4 mm 19-38 BASIC MEASUREMENTS ADULT NORMAL Aortic valve Leaflet separation 21 mm 15-26 Aorta Root diameter, ED 30 mm 20-37 DOPPLER MEASUREMENTS ADULT NORMAL Aortic valve Peak velocity, S 152 cm/s Valve area, Vmax 2.31 cm^2 Valve area index, Vmax 1.04 cm^2/m^2 Mitral valve Peak E-wave velocity 103 cm/s Peak A-wave velocity 53.8 cm/s Pressure half-time 59 ms Peak gradient, D 4 mm Hg Peak E/A ratio 1.9 Valve area, pressure half-time 3.73 cm^2 Valve area index, pressure half-time 1.68 cm^2/m^2 Tricuspid valve Peak gradient, D 8 mm Hg Maximal inflow velocity 141 cm/s Pulmonic valve Peak velocity, S 134 cm/s LEGEND: Mean values are shown as u=mean value. Asterisk (*) gamble values outside specified normal range. Prepared and signed by Justin Ji [id number]
--- NOTE | 2016-07-04 10:38 | PD.CARD.PN ---
Subjective Subjective Remarks feels much better Objective Vital Signs / I&O Vital Signs Date Time Temp Pulse Resp B/P Pulse Ox O2 Delivery O2 Flow Rate FiO2 07/04/16 10:00 65 07/04/16 09:00 68 07/04/16 08:00 68 07/04/16 07:15 75 07/04/16 07:15 98.2 18 134/79 95 07/04/16 06:00 70 07/04/16 06:00 97.1 69 16 121/66 95 07/04/16 05:00 66 07/04/16 04:00 56 07/04/16 03:00 60 07/04/16 02:00 70 07/04/16 01:00 64 07/04/16 00:00 66 07/03/16 23:28 98.5 67 16 125/64 98 07/03/16 23:00 67 07/03/16 22:00 64 07/03/16 21:20 99.2 76 18 139/78 99 07/03/16 21:00 74 07/03/16 20:00 70 07/03/16 19:00 85 07/03/16 18:00 88 07/03/16 17:00 85 07/03/16 16:00 84 07/03/16 15:00 91 07/03/16 15:00 83 18 129/66 100 07/03/16 12:00 92 18 123/69 100 Room Air 07/03/16 11:58 100 21 07/03/16 11:45 78 18 117/63 100 Room Air 07/03/16 11:33 18 07/03/16 11:30 82 18 117/62 100 Room Air 07/03/16 11:22 84 07/03/16 11:15 81 18 125/67 99 Room Air 07/03/16 10:54 88 18 128/67 100 Room Air I/O 07/03/16 07/03/16 07/03/16 07/04/16 07/04/16 07/04/16 07:00 15:00 23:00 07:00 15:00 23:00 Intake Total 1000 ml 240 ml 880 ml Output Total 400 ml 400 ml 400 ml Balance 600 ml -160 ml 480 ml Intake Oral 240 ml 480 ml IV Total 1000 ml 400 ml Output Urine Total 400 ml 400 ml 400 ml # Voids 1 1 Physical Exam GENERAL: SKIN: Warm and dry. HEAD: Normocephalic. EYES: No scleral icterus. No injection or drainage. NECK: Supple, trachea midline. No JVD or lymphadenopathy. CARDIOVASCULAR: Regular rate and rhythm without murmurs, gallops, or rubs. RESPIRATORY: Breath sounds equal bilaterally. No accessory muscle use. GASTROINTESTINAL: Abdomen soft, non-tender, nondistended. MUSCULOSKELETAL: No cyanosis, or edema. BACK: Nontender without obvious deformity. No CVA tenderness. Laboratory Laboratory Tests Test 07/03/16 07/03/16 07/04/16 11:00 11:10 02:54 Chlamydia trachomatis DNA NOT DETECTED (PCR) Neisseria gonorrhoeae DNA NOT DETECTED (PCR) Total Creatine Kinase 1369 U/L 547 U/L Creatine Kinase MB 139.3 NG/ML 32.8 NG/ML Creatine Kinase MB % 10.2 % 6.0 % Troponin I 37.00 NG/ML 19.50 NG/ML Triglycerides Level 100 MG/DL 103 MG/DL Cholesterol Level 130 MG/DL 130 MG/DL LDL Cholesterol 94 MG/DL 89 MG/DL HDL Cholesterol 16.5 MG/DL 20.1 MG/DL Cholesterol/HDL Ratio 7.87 RATIO 6.46 RATIO White Blood Count 8.4 TH/MM3 Red Blood Count 3.83 MIL/MM3 Hemoglobin 11.8 GM/DL Hematocrit 35.0 % Mean Corpuscular Volume 91.5 FL Mean Corpuscular Hemoglobin 30.8 PG Mean Corpuscular Hemoglobin 33.6 % Concent Red Cell Distribution Width 12.8 % Platelet Count 202 TH/MM3 Mean Platelet Volume 8.4 FL Neutrophils (%) (Auto) 70.5 % Lymphocytes (%) (Auto) 21.5 % Monocytes (%) (Auto) 6.2 % Eosinophils (%) (Auto) 1.7 % Basophils (%) (Auto) 0.1 % Neutrophils # (Auto) 5.9 TH/MM3 Lymphocytes # (Auto) 1.8 TH/MM3 Monocytes # (Auto) 0.5 TH/MM3 Eosinophils # (Auto) 0.1 TH/MM3 Basophils # (Auto) 0.0 TH/MM3 CBC Comment DIFF FINAL Differential Comment Activated Partial 29.7 SEC Thromboplast Time Sodium Level 143 MEQ/L Potassium Level 4.2 MEQ/L Chloride Level 107 MEQ/L Carbon Dioxide Level 28.8 MEQ/L Anion Gap 7 MEQ/L Blood Urea Nitrogen 15 MG/DL Creatinine 1.13 MG/DL Estimat Glomerular Filtration 77 ML/MIN Rate Random Glucose 115 MG/DL Calcium Level 8.6 MG/DL Magnesium Level 2.3 MG/DL B-Type Natriuretic Peptide 170 PG/ML Thyroid Stimulating Hormone 2.360 uIU/ML 3rd Gen Assessment and Plan Problem List: (1) Acute epididymitis (2) Tobacco abuse (3) Scrotal swelling (4) Non-ST elevation MA (NSTEMI) (5) LFT elevation (6) Pericarditis (7) Myocarditis Assessment and Plan 1.) Pericarditis/myocarditis - improving on indocin, now assymptomatic 2.) CAD - continue aspirin, lipitor, coreg, jose alberto, dc tobacco Justin Ji MD July 04, 2016 10:38
--- NOTE | 2016-07-04 11:27 | HHI.HP ---
History of Present Illness Service Family medicine Primary Care Physician Adonis Jewell, DO Admission Diagnosis chest pain/elevated troponin/non-ST elevation FL Diagnoses: History of Present Illness 30-year-old male with no significant medical history presented to the emergency room with complaint of worsening shortness of breath, chest pain with associated nausea and vomiting. Patient reports he has been having problems with scrotal swelling and pain for the past 2 weeks. He was seen by a Dr Paniagua and was diagnosed with epididymitis. He received a dose of gentamicin and Toradol in the clinic. He also took one dose of Cipro yesterday morning and another dose around 10 PM last night. The chest tightness and shortness of breath started around 45 minutes after dose of Cipro. He reports severe pain, pressure, and inability to take deep breaths. In the emergency room revealed abnormal EKG and markedly elevated troponin of 25. He went to the lab pack chemist with Dr. Ji and was found to have Pericarditis/myocarditis. Patient is pain free now on Indocin. Regarding his epididymitis he is on IV antibiotics and pain and swelling are improving. Dr. Paniagua consulted. Review of Systems Respiratory: DENIES: Cough, Sputum production, Shortness of breath Cardiovascular: DENIES: Chest pain, Palpitations Gastrointestinal: DENIES: Abdominal pain, Black stools, Bloody stools, Constipation, Diarrhea Genitourinary: COMPLAINS OF: Hematuria, Testicular Pain, Testicular Swelling Musculoskeletal: DENIES: Muscle aches, Stiffness Neurologic: DENIES: Headache Psychiatric: DENIES: Anxiety, Confusion Past Family Social History Allergies: Coded Allergies: Ciprofloxacin (Verified Allergy, Severe, 07/03/16) Pt. states chest tightness, vomitting, respiratory distress after patient took Ciprofloxain PO prescribed by Dr. Peterson ( urologist) on 07/02. Patient came into the emergency room due to allergic reaction. Patient also had elevated troponins which brought him to [facility] floor for heart catherization today Past Medical History None Past Surgical History None Reported Medications Current Medications Medications (Trade) Dose Ordered Sig/Gita Route Start Time Stop Time Status Last Admin (Nitroglycerin-Dextrose Inj) 250 ml @ 0 mls/hr TITRATE IV 07/03/16 10:30 07/03/16 11:09 (NS Flush) 2 ml BID IV FLUSH 07/03/16 21:00 07/04/16 09:05 (NS Flush) 2 ml UNSCH PRN IV FLUSH 07/03/16 11:15 (Morphine Inj) 2 mg Q3HR PRN IV 07/03/16 11:15 07/03/16 22:54 (Colace) 100 mg BID PRN PO 07/03/16 11:15 (Zofran Inj) 4 mg Q6H PRN IV 07/03/16 11:15 Diphenhydramine HCl 25 mg 25 mg Q6H PRN IV PUSH 07/03/16 11:30 (Zosyn 4.5 Gm Premix) 100 ml @ 200 mls/hr Q6H IV 07/03/16 14:00 07/04/16 09:05 (Aspirin Chew) 81 mg DAILY PO 07/04/16 09:00 07/04/16 09:05 (Coreg) 3.125 mg BID PO 07/03/16 21:00 07/04/16 09:05 (Altace) 2.5 mg DAILY PO 07/04/16 09:00 07/04/16 09:05 Indomethacin 50 mg 50 mg Q6HR PO 07/03/16 18:00 07/04/16 05:12 (Vancomycin Inj/ NS 250 ml Inj) 250 ml @ 250 mls/hr Q12H IV 07/03/16 15:00 07/04/16 05:09 Family History Mother with breast cancer Social History father with pre-diabetes Physical Exam Vital Signs Vital Signs Date Time Temp Pulse Resp B/P Pulse Ox O2 Delivery O2 Flow Rate FiO2 07/04/16 10:00 65 07/04/16 09:00 68 07/04/16 08:00 68 07/04/16 07:15 75 07/04/16 07:15 98.2 18 134/79 95 07/04/16 06:00 70 07/04/16 06:00 97.1 69 16 121/66 95 07/04/16 05:00 66 07/04/16 04:00 56 07/04/16 03:00 60 07/04/16 02:00 70 07/04/16 01:00 64 07/04/16 00:00 66 07/03/16 23:28 98.5 67 16 125/64 98 07/03/16 23:00 67 07/03/16 22:00 64 07/03/16 21:20 99.2 76 18 139/78 99 07/03/16 21:00 74 07/03/16 20:00 70 07/03/16 19:00 85 07/03/16 18:00 88 07/03/16 17:00 85 07/03/16 16:00 84 07/03/16 15:00 91 07/03/16 15:00 83 18 129/66 100 07/03/16 12:00 92 18 123/69 100 Room Air 07/03/16 11:58 100 21 07/03/16 11:45 78 18 117/63 100 Room Air 07/03/16 11:33 18 07/03/16 11:30 82 18 117/62 100 Room Air 07/03/16 11:22 84 07/03/16 11:15 81 18 125/67 99 Room Air Physical Exam GENERAL: This is a well-nourished, well-developed patient, in no apparent distress. SKIN: No rashes, ecchymoses or lesions. Cool and dry. Right groin site with dressing on no hematoma noted. CARDIOVASCULAR: Regular rate and rhythm without murmurs, gallops, or rubs. RESPIRATORY: Clear to auscultation. Breath sounds equal bilaterally. No wheezes , rales, or rhonchi. GASTROINTESTINAL: Abdomen soft, non-tender, nondistended. No hepato-splenomegaly , or palpable masses. No guarding. MUSCULOSKELETAL: Extremities without clubbing, cyanosis, or edema. No joint tenderness, effusion, or edema noted. No calf tenderness. Negative Homans sign bilaterally. NEUROLOGICAL: Awake and alert. Normal speech. Laboratory Laboratory Tests Test 07/03/16 07/04/16 11:10 02:54 Total Creatine Kinase 1369 547 Creatine Kinase MB 139.3 32.8 Creatine Kinase MB % 10.2 6.0 Troponin I 37.00 19.50 Triglycerides Level 100 103 Cholesterol Level 130 130 LDL Cholesterol 94 89 HDL Cholesterol 16.5 20.1 Cholesterol/HDL Ratio 7.87 6.46 White Blood Count 8.4 Red Blood Count 3.83 Hemoglobin 11.8 Hematocrit 35.0 Mean Corpuscular Volume 91.5 Mean Corpuscular Hemoglobin 30.8 Mean Corpuscular Hemoglobin 33.6 Concent Red Cell Distribution Width 12.8 Platelet Count 202 Mean Platelet Volume 8.4 Neutrophils (%) (Auto) 70.5 Lymphocytes (%) (Auto) 21.5 Monocytes (%) (Auto) 6.2 Eosinophils (%) (Auto) 1.7 Basophils (%) (Auto) 0.1 Neutrophils # (Auto) 5.9 Lymphocytes # (Auto) 1.8 Monocytes # (Auto) 0.5 Eosinophils # (Auto) 0.1 Basophils # (Auto) 0.0 CBC Comment DIFF FINAL Differential Comment Activated Partial 29.7 Thromboplast Time Sodium Level 143 Potassium Level 4.2 Chloride Level 107 Carbon Dioxide Level 28.8 Anion Gap 7 Blood Urea Nitrogen 15 Creatinine 1.13 Estimat Glomerular Filtration 77 Rate Random Glucose 115 Calcium Level 8.6 Magnesium Level 2.3 B-Type Natriuretic Peptide 170 Thyroid Stimulating Hormone 2.360 3rd Gen Result Diagram: 07/04/16 0254 07/04/16 0254 Imaging Last 72 hours Impressions Chest X-Ray 07/03/16 0916 Signed Impressions: Service Date/Time: June 09:28 - CONCLUSION: No acute cardiopulmonary process. Sedrick Penn MD Scrotum Ultrasound 07/03/16 0000 Signed Impressions: Service Date/Time: June 16:11 - CONCLUSION: 1. Sonographic and Doppler findings characteristic of an epididymitis with possible mild associated orchitis on the left. 2. Both testicles are otherwise sonographically intact. 3. Bilateral varicoceles, left greater than right Sedrick Penn MD Course Current Medications Medications (Trade) Dose Ordered Sig/Gita Route Start Time Stop Time Status Last Admin (Nitroglycerin-Dextrose Inj) 250 ml @ 0 mls/hr TITRATE IV 07/03/16 10:30 07/03/16 11:09 (NS Flush) 2 ml BID IV FLUSH 07/03/16 21:00 07/04/16 09:05 (NS Flush) 2 ml UNSCH PRN IV FLUSH 07/03/16 11:15 (Morphine Inj) 2 mg Q3HR PRN IV 07/03/16 11:15 07/03/16 22:54 (Colace) 100 mg BID PRN PO 07/03/16 11:15 (Zofran Inj) 4 mg Q6H PRN IV 07/03/16 11:15 Diphenhydramine HCl 25 mg 25 mg Q6H PRN IV PUSH 07/03/16 11:30 (Zosyn 4.5 Gm Premix) 100 ml @ 200 mls/hr Q6H IV 07/03/16 14:00 07/04/16 09:05 (Aspirin Chew) 81 mg DAILY PO 07/04/16 09:00 07/04/16 09:05 (Coreg) 3.125 mg BID PO 07/03/16 21:00 07/04/16 09:05 (Altace) 2.5 mg DAILY PO 07/04/16 09:00 07/04/16 09:05 Indomethacin 50 mg 50 mg Q6HR PO 07/03/16 18:00 07/04/16 05:12 (Vancomycin Inj/ NS 250 ml Inj) 250 ml @ 250 mls/hr Q12H IV 07/03/16 15:00 07/04/16 05:09 Assessment and Plan Problem List: (1) Non-ST elevation FL (NSTEMI) Status: Acute Plan: Patient to the pit laborer yesterday with Dr. Ji no intervention needed. Right groin dressing dry and intact no hematoma noted. Patient is on ASA, altace, and Coreg. (2) Pericarditis Status: Acute Plan: Patient is pain free. On indocin (3) Acute epididymitis Status: Acute Plan: Continue IV antibiotics. Symptoms improving. Patient is afebrile and WBC WNL. Dr. Paniagua consulted (4) Tobacco abuse Status: Acute Plan: Tobacco cessation reviewed. (5) LFT elevation Status: Acute Plan: Will monitor Assessment and Plan Assessment and plan discussed with Dr. Jewell Code Status: Shock Discussed Condition With Nursing Discharge Planning Home Physician Attestation I and the COMMISSARY WORKER have both examined this patient and reviewed this note and I agree with these findings and plan of care. Marimar Tam COMMISSARY WORKER July 04, 2016 11:27
--- NOTE | 2016-07-04 13:19 | MB ---
cc: NARDA INCK MD DATE OF CONSULTATION 07/04/2016 REASON FOR CONSULTATION Left epididymal orchitis HISTORY OF PRESENT ILLNESS The patient is a 30-year-old otherwise healthy male who was seen by Dr. Echeverria two days ago for left testicular pain, swelling, burning with urination and blood in his urine. He was diagnosed with acute left epididymitis and started on Cipro and Toradol. Earlier that night, he developed acute onset of chest pain and shortness of breath, as well as worsening pain in his left testicle. He came to [facility] yesterday where he was found to have an elevated troponin of 37 and was admitted for a possible myocardial infarction secondary to side effect of the Cipro. The patient underwent a heart catheterization which subsequently was negative. Urology was consulted for this worsening epididymitis. The patient had a scrotal ultrasound done which confirmed epididymitis, but no evidence of any scrotal abscess. Currently the patient feels much better. His pain is 3/10 and describes it more as an 8 and sharp and stabbing in the last couple of days. He denies any prior episodes. Denies a history of urinary tract infections or sexual transmitted diseases. Denies a history of kidney stones or family history of prostate cancer. Denies dysuria or hematuria at this time. Denies any fevers, chills, nausea or vomiting. He feels significantly better after receiving of vancomycin and Zosyn over the last 12 hours. PAST HISTORY None PAST SURGICAL HISTORY Circumcision SOCIAL HISTORY Denies smoking, alcohol, or illicit drugs. FAMILY HISTORY Denies urolithiasis or genitourinary malignancies. ALLERGIES CIPRO HOME MEDICATIONS None REVIEW OF SYSTEMS See HPI, otherwise all systems reviewed and are otherwise negative. PHYSICAL EXAMINATION VITAL SIGNS: Temperature 98, heart rate 80, blood pressure 130/76. GENERAL: Alert and oriented x3 in no apparent distress, pleasant and cooperative gentleman who appears his stated age. HEAD: Normocephalic, atraumatic. NECK: Supple. Trachea is midline. No JVD. EYES: No scleral icterus. Extraocular muscles intact. LUNGS: Clear to auscultation bilaterally. No wheezes, rales or rhonchi. HEART: Regular rate. ABDOMEN: Soft, nontender, nondistended. Positive bowel sounds. GENITOURINARY: No CVA test bilaterally. His phallus is circumcised with normally urethral meatus. Testicles normal without masses. Left testicle is tender, firm and indurated with erythema, but no evidence of crepitus or eschar. RECTAL: No indicated at this time. EXTREMITIES: Nontender. No clubbing, cyanosis or edema. NEUROLOGIC: Cranial nerves II-XII intact. Strength 5/5 in all four extremities. SKIN: No ulcers or rashes. PSYCH: Normal affect. LABS Show a white count of 18,000, creatinine 0.8. Urine culture currently no growth over the past 24 hours. IMAGING STUDIES Scrotal ultrasound images are reviewed. Agree with radiologist's report. The patient has left epididymal orchitis, as well as bilateral hydrocele and left varicocele, but no evidence of abscess. ASSESSMENT AND PLAN The patient is a 30-year-old male with acute left epididymitis. PLAN Recommend continuing Vancomycin and Zosyn for another 24 hours. As long as he does not spike any fevers, the patient can be discharged home on 07/05/2016 with two weeks of doxycycline 100 mg p.o. b.i.d. Also recommend icing his scrotum three x a day for 20 minutes, as well as elevation of scrotum. He can follow up in my office in two weeks. Thank you for this consult. Please call with any questions. MD ISAAC Lunsford/CHICA /12:55 PM /1:04 PM
--- NOTE | 2016-07-04 15:05 | PD.ID.CON ---
History of Present Illness Service ID Consult Requested By Reason for Consult Evaluation and Mment of Epididymoorchitis in a young male. Primary Care Physician Adonis Jewell DO Diagnoses: History of Present Illness is a 30 y/o CM with no significant medical history presented to the emergency room with complaint of worsening shortness of breath, chest pain with associated nausea and vomiting. Patient reports he has been having problems with scrotal swelling and pain for the past 2 weeks. He was seen by a Dr Paniagua and was diagnosed with epididymitis. He received a dose of gentamicin and Toradol in the clinic. He also took one dose of Cipro yesterday morning and another dose around 10 PM night prior to admission. The chest tightness and shortness of breath started around 45 minutes after dose of Cipro. He reports severe pain, pressure, and inability to take deep breaths. In the emergency room revealed abnormal EKG and markedly elevated troponin of 25. He went to the electroplating laborer with Dr. Justin Ji and was found to have Pericarditis/ myocarditis. Patient is pain free now on Indocin. Regarding his epididymitis he is on IV antibiotics and pain and swelling are improving. Dr. Cabrera has been following. At the time of my evaluation patient was on Zosyn IV and Vanco IV. Unfortunately no UA results available. GC and Chlam screen are negative. ID consulted for evaluation and mment of epididymoorchitis given h/o Cipro severe allergy. Review of Systems ROS Limitations: Poor Historian Constitutional: DENIES: Diaphoretic episodes, Fatigue, Fever, Weight gain, Weight loss, Chills, Dizziness, Change in appetite, Night Sweats Endocrine: DENIES: Heat/cold intolerance, Polydipsia, Polyuria, Polyphagia Eyes: DENIES: Blurred vision, Diplopia, Eye inflammation, Eye pain, Vision loss , Photosensitivity, Double Vision Ears, nose, mouth, throat: DENIES: Tinnitus, Hearing loss, Vertigo, Nasal discharge, Oral lesions, Throat pain, Hoarseness, Ear Pain, Running Nose, Epistaxis, Sinus Pain, Toothache, Odynophagia Respiratory: DENIES: Apneas, Cough, Snoring, Wheezing, Hemoptysis, Sputum production, Shortness of breath Cardiovascular: COMPLAINS OF: Chest pain, DENIES: Palpitations, Syncope, Dyspnea on Exertion, PND, Lower Extremity Edema, Orthopnea, Claudication Gastrointestinal: DENIES: Abdominal pain, Black stools, Bloody stools, Constipation, Diarrhea, Nausea, Vomiting, Difficulty Swallowing, Anorexia Genitourinary: COMPLAINS OF: Urgency, Penile Discharge, Testicular Pain, Testicular Swelling, DENIES: Sexual dysfunction, Urinary frequency, Urinary incontinence, Hematuria, Dysuria, Nocturia Musculoskeletal: DENIES: Joint pain, Muscle aches, Stiffness, Joint Swelling, Back pain, Neck pain Integumentary: DENIES: Abnormal pigmentation, Nail changes, Pruritus, Rash Hematologic/lymphatic: DENIES: Bruising, Lymphadenopathy Immunologic/allergic: DENIES: Eczema, Urticaria Neurologic: DENIES: Abnormal gait, Headache, Localized weakness, Paresthesias, Seizures, Speech Problems, Tremor, Poor Balance Psychiatric: DENIES: Anxiety, Confusion, Mood changes, Depression, Hallucinations, Agitation, Suicidal Ideation, Homicidal Ideation, Delusions Past Family Social History Allergies: Coded Allergies: Ciprofloxacin (Verified Allergy, Severe, 07/03/16) Pt. states chest tightness, vomitting, respiratory distress after patient took Ciprofloxain PO prescribed by Dr. Peterson ( urologist) on 07/02. Patient came into the emergency room due to allergic reaction. Patient also had elevated troponins which brought him to [facility] floor for heart catherization today Past Medical History None Past Surgical History Cardiac cath Reported Medications Toradol and Genta in outside hospital clinic. Reported Meds & Active Scripts Active Reported Cipro (Ciprofloxacin HCl) 500 Mg Tab 500 Mg PO ONCE Active Ordered Medications Current Medications Medications (Trade) Dose Ordered Sig/Gita Route Start Time Stop Time Status Last Admin (Nitroglycerin-Dextrose Inj) 250 ml @ 0 mls/hr TITRATE IV 07/03/16 10:30 07/03/16 11:09 (NS Flush) 2 ml BID IV FLUSH 07/03/16 21:00 07/04/16 09:05 (NS Flush) 2 ml UNSCH PRN IV FLUSH 07/03/16 11:15 (Morphine Inj) 2 mg Q3HR PRN IV 07/03/16 11:15 07/03/16 22:54 (Colace) 100 mg BID PRN PO 07/03/16 11:15 (Zofran Inj) 4 mg Q6H PRN IV 07/03/16 11:15 (Benadryl Inj) 25 mg Q6H PRN IV PUSH 07/03/16 11:30 (Aspirin Chew) 81 mg DAILY PO 07/04/16 09:00 07/04/16 09:05 (Coreg) 3.125 mg BID PO 07/03/16 21:00 07/04/16 09:05 (Altace) 2.5 mg DAILY PO 07/04/16 09:00 07/04/16 09:05 (Indocin) 50 mg Q6HR PO 07/03/16 18:00 07/04/16 16:38 (Vibramycin) 100 mg BID PO 07/04/16 15:00 07/04/16 16:40 Family History Both parents have arthritis. His Dad undergoes injections of some sort for arthritis. Social History 30-year-old male with no significant medical history presented to the emergency room with complaint of worsening shortness of breath, chest pain with associated nausea and vomiting. Patient reports he has been having problems with scrotal swelling and pain for the past 10 days. He was seen by a urologist yesterday and was diagnosed with epididymitis. He received a dose of gentamicin and Toradol in the clinic. He also took one dose of Cipro yesterday morning and another dose around 10 PM last night. The chest tightness and shortness of breath started around 10 PM as well. He reports severe pain and inability to take deep breaths. The symptoms woke him up this morning which prompted the emergency room visit. Workup in the emergency room revealed abnormal EKG and markedly elevated troponin of 25. ED physician discussed the case with on-call staff air defense officer Dr. Ji who requested transfer to the main hospital as soon as possible. Regarding the scrotal swelling. The patient reports that the swelling and pain has gotten worse over the past couple of days. He admits to having fever and chills yesterday evening. He has had blood in the semen and the urine. ROS - General Review of Systems Constitutional: COMPLAINS OF: Fever, Chills Endocrine: DENIES: Polydipsia Cardiovascular: COMPLAINS OF: Chest pain, Dyspnea on Exertion Genitourinary: COMPLAINS OF: Hematuria, Testicular Pain, Testicular Swelling Except as stated in HPI: all other systems reviewed are Neg PFSH Past Family Social History Past Medical History None Past Surgical History [place] tooth removal Reported Medications Reported Meds & Active Scripts Active Patient admits to smoking cigars about once a month. Admits to having 1-2 alcoholic beverages about 5 days per week. He admits to marijuana use. Denies any other illicit drug use. Physical Exam Vital Signs Vital Signs Date Time Temp Pulse Resp B/P Pulse Ox O2 Delivery O2 Flow Rate FiO2 07/04/16 11:00 97.3 77 18 130/86 97 07/04/16 11:00 68 07/04/16 10:00 65 07/04/16 09:00 68 07/04/16 08:00 68 07/04/16 07:15 75 07/04/16 07:15 98.2 18 134/79 95 07/04/16 06:00 70 07/04/16 06:00 97.1 69 16 121/66 95 07/04/16 05:00 66 07/04/16 04:00 56 07/04/16 03:00 60 07/04/16 02:00 70 07/04/16 01:00 64 07/04/16 00:00 66 07/03/16 23:28 98.5 67 16 125/64 98 07/03/16 23:00 67 07/03/16 22:00 64 07/03/16 21:20 99.2 76 18 139/78 99 07/03/16 21:00 74 07/03/16 20:00 70 07/03/16 19:00 85 07/03/16 18:00 88 07/03/16 17:00 85 07/03/16 16:00 84 Physical Exam GENERAL: This is a well-nourished, well-developed patient, in no apparent distress. SKIN: No rashes, ecchymoses or lesions. Cool and dry. HEAD: Atraumatic. Normocephalic. No temporal or scalp tenderness. EYES: Pupils equal round and reactive. Extraocular motions intact. No scleral icterus. No injection or drainage. ENT: Nose without bleeding, purulent drainage or septal hematoma. Throat without erythema, tonsillar hypertrophy or exudate. Uvula midline. Airway patent. NECK: Trachea midline. Supple, nontender, no meningeal signs. CARDIOVASCULAR: Regular rate and rhythm without murmurs, gallops, or rubs. RESPIRATORY: Clear to auscultation. Breath sounds equal bilaterally. No wheezes , rales, or rhonchi. GASTROINTESTINAL: Abdomen soft, non-tender, nondistended. MUSCULOSKELETAL: Extremities without clubbing, cyanosis, or edema. No joint tenderness, effusion, or edema noted. No calf tenderness. Negative Homans sign bilaterally. exam: Erythema, warmth, tenderness noted in the left side of groin. No fluctuance noted. Testicles tender to touch mildly. NEUROLOGICAL: Awake and alert.Grossly non focal Psych: cooperative IV line sites with no e.o infection. Laboratory Laboratory Tests Test 07/04/16 02:54 White Blood Count 8.4 Red Blood Count 3.83 Hemoglobin 11.8 Hematocrit 35.0 Mean Corpuscular Volume 91.5 Mean Corpuscular Hemoglobin 30.8 Mean Corpuscular Hemoglobin 33.6 Concent Red Cell Distribution Width 12.8 Platelet Count 202 Mean Platelet Volume 8.4 Neutrophils (%) (Auto) 70.5 Lymphocytes (%) (Auto) 21.5 Monocytes (%) (Auto) 6.2 Eosinophils (%) (Auto) 1.7 Basophils (%) (Auto) 0.1 Neutrophils # (Auto) 5.9 Lymphocytes # (Auto) 1.8 Monocytes # (Auto) 0.5 Eosinophils # (Auto) 0.1 Basophils # (Auto) 0.0 CBC Comment DIFF FINAL Differential Comment Activated Partial 29.7 Thromboplast Time Sodium Level 143 Potassium Level 4.2 Chloride Level 107 Carbon Dioxide Level 28.8 Anion Gap 7 Blood Urea Nitrogen 15 Creatinine 1.13 Estimat Glomerular Filtration 77 Rate Random Glucose 115 Calcium Level 8.6 Magnesium Level 2.3 Total Creatine Kinase 547 Creatine Kinase MB 32.8 Creatine Kinase MB % 6.0 Troponin I 19.50 B-Type Natriuretic Peptide 170 Triglycerides Level 103 Cholesterol Level 130 LDL Cholesterol 89 HDL Cholesterol 20.1 Cholesterol/HDL Ratio 6.46 Thyroid Stimulating Hormone 2.360 3rd Gen Result Diagram: 07/04/16 0254 07/04/16 0254 Imaging Last Impressions Chest X-Ray 07/03/16 0916 Signed Impressions: Service Date/Time: June 09:28 - CONCLUSION: No acute cardiopulmonary process. Sedrick Penn MD Scrotum Ultrasound 07/03/16 0000 Signed Impressions: Service Date/Time: June 16:11 - CONCLUSION: 1. Sonographic and Doppler findings characteristic of an epididymitis with possible mild associated orchitis on the left. 2. Both testicles are otherwise sonographically intact. 3. Bilateral varicoceles, left greater than right Sedrick Penn MD Assessment and Plan Assessment and Plan Acute infectious Epididymoorchitis Infectious Causes: GC and Chlam negative, r.o HIV, Mumps, viral, other bacterial infections Non infectious causes: given pericarditis and myocarditis: Viral, Rheumatological causes. Acute pericarditis and Acute myocarditis: viral vs Cipro induced. Recs DC Zosyn IV DC Vanco IV One time dose of Ceftriaxone IV. Start Oral Doxy. If tolerates doxy and clinically improving this can be his discharge regimen for total duration of 2 weeks. Needs follow up with PCP and Infectious Disease Dr.Reba Huddleston for follow up on labs and clinically: Dr.Reba Huddleston d/w . covering for me this weekend. Katia Bee MD July 04, 2016 15:05
[2016-07-04] MEDS: DOXYCYCLINE HYCLATE 100 MG CAP PO SCH ×2 (16:40→21:58)
[2016-07-04] MEDS ORDERED: cefTRIAXone INJ 2,000 MG in SODIUM CHLORIDE 0.9% INJ 100 ML IV ONE (19:00)
--- NOTE | 2016-07-04 19:59 | MR ---
cc: JUSTIN RAMIREZ M.D. DATE: 07/03/2016. PROCEDURES PERFORMED: 1. Left heart catheterization. 2. Left ventriculography. 3. Coronary angiography. INDICATIONS FOR THE PROCEDURE: STEMI. Coronary artery disease. Myocarditis. Pericarditis. DESCRIPTION OF THE PROCEDURE IN DETAIL: The patient brought to the cardiac catheterization laboratory emergently for stenting as he had S-T elevation with markedly elevated troponin and CK with significantly positive MB percent. He was prepped and draped in the usual sterile fashion. 10 cc of 1% lidocaine was used to locally anesthetize the right common femoral artery. A 4-Nigerien sheath was subsequently placed in the right common femoral artery. 4-Nigerien JR-4 and JL-4 catheters were used to perform left and right coronary angiography and left ventriculography. FINDINGS: LV pressures 110/10-11. Ejection fraction 50% to 55%. The right coronary is large and dominant. No significant obstructive disease. The left main coronary has no significant disease angiographically. The left circumflex vessel has a 30% stenosis at the takeoff of a large marginal vessel which itself has an ostial 20% to 30% stenosis. The AV groove left circumflex beyond this marginal vessel is small, probably 1 mm in diameter and having no significant obstructive disease. The left anterior descending is transapical. No significant obstructive disease. First and second diagonal arteries are small to medium size vessels with no significant coronary artery disease. CONCLUSIONS: 1. Angiographically mild one-vessel coronary artery disease as detailed above in a right-dominant system. 2. Normal to low normal left ventricular systolic function with ejection fraction of 50% to 55%. 3. Suspect ST-elevation and cardiac enzyme elevation due to pericarditis / myocarditis. 4. Will treat empirically with NSAIDs, indomethacin in particular. Stop Heparin. Stop Nitro. Also start a baby aspirin 81 milligrams daily. Check fasting lipids and treat per NCCN guidelines. 5. As he has questionable cardiomyopathy, will also initiate beta bernice and KINSEY inhibitor. Justin Ramirez MD Debbie/MYNOR /1:26 PM /7:50 PM
[2016-07-04 22:34] LABS: BLOOD, URINE NEG (NEG); COMMENT (UR) CULT NOT INDICATED; CULTURE IF INDICATED CULT NOT INDICATED; GLUCOSE,URINE NEG (NEG); KETONE, URINE NEG (NEG); NITRITE,URINE NEG (NEG); SQUAMOUS EPITHELIAL CELL URINE <1 /hpf (0-5); URINE COLOR LIGHT-YELLOW (YELLW/STRAW)
[2016-07-05 00:34] VITALS: BP 128/62; PULSE 59; RESP 16; TEMP 98.3; O2SAT 99
[2016-07-05 04:00] VITALS: BP 146/70; PULSE 62; RESP 16; TEMP 97.8; O2SAT 100
[2016-07-05] MEDS: INDOMETHACIN 50 MG CAP PO SCH (06:11)
[2016-07-05 08:00] VITALS: BP 141/84; PULSE 18; RESP 18; TEMP 98; O2SAT 97
[2016-07-05 08:27] VITALS: PULSE 67
--- NOTE | 2016-07-05 08:33 | HHI.DS ---
Discharge Summary Admission Date July 03, 2016 at 10:48 Discharge Date: July 05, 2016 Admitting Diagnosis chest pain/elevated troponin/non-ST elevation AZ (1) Non-ST elevation AZ (NSTEMI) ICD Code: I21.4 Diagnosis: Principal (2) Acute epididymitis ICD Code: N45.1 Diagnosis: Principal (3) Scrotal swelling ICD Code: N50.89 Diagnosis: Principal (4) Leukocytosis ICD Code: D72.829 Diagnosis: Principal (5) LFT elevation ICD Code: R94.5 Diagnosis: Principal (6) Tobacco abuse ICD Code: Z72.0 Diagnosis: Principal Procedures cardiac cath Brief History - From Admission 30-year-old male with no significant medical history presented to the emergency room with complaint of worsening shortness of breath, chest pain with associated nausea and vomiting. Patient reports he has been having problems with scrotal swelling and pain for the past 10 days. He was seen by a urologist yesterday and was diagnosed with epididymitis. He received a dose of gentamicin and Toradol in the clinic. He also took one dose of Cipro yesterday morning and another dose around 10 PM last night. The chest tightness and shortness of breath started around 10 PM as well. He reports severe pain and inability to take deep breaths. The symptoms woke him up this morning which prompted the emergency room visit. Workup in the emergency room revealed abnormal EKG and markedly elevated troponin of 25. ED physician discussed the case with on-call fire manager Dr. Ji who requested transfer to the [facility] as soon as possible. Regarding the scrotal swelling. The patient reports that the swelling and pain has gotten worse over the past couple of days. He admits to having fever and chills yesterday evening. He has had blood in the semen and the urine. CBC/BMP: 07/04/16 0254 07/04/16 0254 Significant Findings Laboratory Tests Test 07/03/16 07/03/16 07/04/16 07/04/16 08:40 11:10 02:54 22:00 White Blood Count 18.3 TH/MM3 (4.0-11.0) Neutrophils (%) (Auto) 85.3 % 70.5 % (16.0-70.0) (16.0-70.0) Lymphocytes (%) (Auto) 8.7 % (9.0-44.0) Neutrophils # (Auto) 15.6 TH/MM3 (1.8-7.7) Prothrombin Time 11.7 SEC (9.8-11.6) Activated Partial 33.2 SEC Thromboplast Time (24.3-30.1) Estimat Glomerular Filtration 80 ML/MIN (>89) 77 ML/MIN (>89) Rate Random Glucose 115 MG/DL 115 MG/DL (74-106) (74-106) Aspartate Amino Transf 139 U/L (15-37) (AST/SGOT) Total Creatine Kinase 1323 U/L 1369 U/L 547 U/L (39-308) (39-308) (39-308) Creatine Kinase MB 134.7 NG/ML 139.3 NG/ML 32.8 NG/ML (0.5-3.6) (0.5-3.6) (0.5-3.6) Creatine Kinase MB % 10.2 % 10.2 % 6.0 % (0.0-4.0) (0.0-4.0) (0.0-4.0) Troponin I 25.00 NG/ML 37.00 NG/ML 19.50 NG/ML (0.02-0.05) (0.02-0.05) (0.02-0.05) Total Protein 8.6 GM/DL (6.4-8.2) HDL Cholesterol 16.5 MG/DL 20.1 MG/DL (40.0-60.0) (40.0-60.0) Red Blood Count 3.83 MIL/MM3 (4.50-5.90) Hemoglobin 11.8 GM/DL (13.0-17.0) Hematocrit 35.0 % (39.0-51.0) B-Type Natriuretic Peptide 170 PG/ML (0-100) Urine Leukocyte Esterase SMALL (NEG) Imaging Last Impressions Chest X-Ray 07/03/16 3802 Signed Impressions: Service Date/Time: June 09:28 - CONCLUSION: No acute cardiopulmonary process. Sedrick Penn MD Scrotum Ultrasound 07/03/16 0000 Signed Impressions: Service Date/Time: June 16:11 - CONCLUSION: 1. Sonographic and Doppler findings characteristic of an epididymitis with possible mild associated orchitis on the left. 2. Both testicles are otherwise sonographically intact. 3. Bilateral varicoceles, left greater than right Sedrick Penn MD PE at Discharge GENERAL: This is a well-nourished, well-developed patient, in no apparent distress. SKIN: No rashes, ecchymoses or lesions. Cool and dry. HEAD: Atraumatic. Normocephalic. No temporal or scalp tenderness. EYES: Pupils equal round and reactive. Extraocular motions intact. No scleral icterus. No injection or drainage. ENT: Nose without bleeding, purulent drainage or septal hematoma. Throat without erythema, tonsillar hypertrophy or exudate. Uvula midline. Airway patent. NECK: Trachea midline. No JVD or lymphadenopathy. Supple, nontender, no meningeal signs. CARDIOVASCULAR: Regular rate and rhythm without murmurs, gallops, or rubs. RESPIRATORY: Clear to auscultation. Breath sounds equal bilaterally. No wheezes , rales, or rhonchi. GASTROINTESTINAL: Abdomen soft, non-tender, nondistended. No hepato-splenomegaly , or palpable masses. No guarding. : Left scrotum is markedly swollen and erythematous. Diffusely tender to palpation MUSCULOSKELETAL: Extremities without clubbing, cyanosis, or edema. No joint tenderness, effusion, or edema noted. No calf tenderness. Negative Homans sign bilaterally. NEUROLOGICAL: Awake and alert. Cranial nerves II through XII intact. Motor and sensory grossly within normal limits. Five out of 5 muscle strength in all muscle groups. Normal speech. Pt update on day of discharge Feels much better. Scrotal erythema and edema improved significantly. Patient says chest pain subsided with medications. No n/v/d/c. Wants to go home. Tolerates PO doxycycline . Hospital Course Non-ST elevation AZ (NSTEMI) Pericarditis Unusual presentation for a 30-year-old male with no significant risk factors. Used ciprofloxacin, gentamicin, and Toradol yesterday. ?drug reaction. Doubtful but a viral pericarditis is not completely excluded as he currently has epididymitis which occasionally is a viral infection. Troponin of 25 on presentation and was trending up. Initial EKG with possible repolarization in the inferior lateral leads. Test Driver to review the EKG Cardiology consulted, Dr. Ji is aware. Patient will be transferred to the main hospital. Patient has been given aspirin, he was started on a heparin drip per cardiology recommendations. Continue to trend cardiac enzymes and EKG. 2D echo. Went for cardiac cath 07/03/16 , clean cath Acute epididymitis, failed OP treatment Per patient, he was seen by urology yesterday and was given a dose of gentamicin , Toradol, and ciprofloxacin. He reports persistent and worsening pain and swelling over the past couple of days. - Consult urology for assistance. - Urine studies for chlamydia and gonorrhea are negative - Obtain ultrasound. Received one dose of Rocephin. Start vanco and zosyn IV. Will consider doxycycline once acute cardiac issues are dealt with. - Consult ID for recommendations or abx at [place]. Recommends doxycycline PO at [place]. Also Dr Cabrera urology recommends doxycycline. Scrotal swelling See above. Pain control. Urology consulted. Leukocytosis Likely secondary to epididymitis. Continue to monitor. Improved LFT elevation Probably secondary to alcohol use. Monitor. Trend levels Tobacco abuse- Patient counseled to quit. Discussed with the patient, nurse, family at bedside, ID specialist Dr Bee, urology specialist Dr Cabrera. Improved. Cleared by consultants for DC. Clean cath. To continue antibiotics at discharge , doxicycline PO . To follow up as OP with PCP and consultants. Pt Condition on Discharge: Stable Discharge Disposition: Discharge Home Discharge Time: > 30 minutes Discharge Instructions DIET: Follow Instructions for: As Tolerated, No Restrictions Activities you can perform: Regular-No Restrictions Follow up Referrals: Appointment for Follow Up - 10 Days @ [facility] of [facility] with Sunni Huddleston Cardiology - 2 Weeks with Justin Ji MD PCP Follow-up - 3-5 Days Urology - 2 Weeks with Osmel Cabrera MD New Medications: Doxycycline Hyclate (Doxycycline Hyclate) 100 Mg Cap 100 MG PO BID infection #28 CAP Indomethacin (Indomethacin) 50 Mg Cap 50 MG PO Q6HR chest pain/pericarditis #30 CAP Discontinued Medications: Ciprofloxacin (Cipro) 500 Mg Tab 500 MG PO ONCE Infection Ref 0 TAB Faye Teresa MD July 05, 2016 08:33
[2016-07-05 08:35] LABS: POTASSIUM 3.9 MEQ/L (3.5-5.1)
[2016-07-05] MEDS: CARVEDILOL 3.125 MG TAB PO SCH (08:36)
[2016-07-05] MEDS: ASPIRIN 81 MG CHEW TAB PO SCH (08:37)
[2016-07-05] MEDS: RAMIPRIL 2.5 MG CAP PO SCH (08:37)
[2016-07-05] MEDS ORDERED: INDO50CA PO (08:37)
[2016-07-05] MEDS ORDERED: DOXY100C PO (08:37)
[2016-07-05] MEDS: DOXYCYCLINE HYCLATE 100 MG CAP PO SCH (08:37)
[2016-07-05] MEDS: SODIUM CHLORIDE 0.9% FLUSH 10 ML FLUSH IV FLUSH SCH (08:38)
[2016-07-07 12:15] LABS: ANA SCREEN NEG (NEG)
[2016-07-09 19:53] LABS: MUMPS IGM AB <1:20 (())
[2016-07-12 19:54] LABS: THROMBIN TIME FOR LA ND sec (13-19)
== END 2016-07-05 09:58 | disposition home or self-care (01) | DRG 280 ==
LOC: PHED 08:20 → PHEDA 10:48 → HCIN 13:43 → N04A 07-04 11:29
PROVIDERS: ADMIT Hospitalist; ATTEND Hospitalist
PROC: 4A023N7 Measurement of Cardiac Sampling and Pressure, Left Heart, Percutaneous Approach (ICD-10-PCS; principal; 2016-07-03)
PROC: B2111ZZ Fluoroscopy of Multiple Coronary Arteries using Low Osmolar Contrast (ICD-10-PCS; 2016-07-03)
PROC: B2151ZZ Fluoroscopy of Left Heart using Low Osmolar Contrast (ICD-10-PCS; 2016-07-03)
DX: I21.4 Non-ST elevation (NSTEMI) myocardial infarction (principal); I40.9 Acute myocarditis, unspecified; I30.9 Acute pericarditis, unspecified; D72.829 Elevated white blood cell count, unspecified; F17.290 Nicotine dependence, other tobacco product, uncomplicated; N50.89 Other specified disorders of the male genital organs; F12.90 Cannabis use, unspecified, uncomplicated; Z80.3 Family history of malignant neoplasm of breast; N45.3 Epididymo-orchitis; E78.5 Hyperlipidemia, unspecified; R73.9 Hyperglycemia, unspecified; I25.10 Atherosclerotic heart disease of native coronary artery without angina pectoris; R79.89 Other specified abnormal findings of blood chemistry
CPT/HCPCS: 71010; 76870; 80048; 80053; 80061; 80074; 81001; 82550; 82552; 83690; 83735; 83880; 84443; 84484; 85002; 85025; 85597; 85610; 85613; 85730; 86038; 86140; 86592; 86703; 86735; 87491; 87591; 93005; 93306; 93458; 93975; 96361; 96374; 96375; C1769; C1893; J1200; J1644; J2060; J2270; J2405; J2543; J3010; J3370; J7030; J7050; Q9967